=== PATIENT | female | born 1955 | race Caucasian/White ===

== ENCOUNTER 2018-12-10 06:05 | Emergency (ER) | payer BC ==
--- OUTSIDE RECORDS SUMMARY | 2018-12-10 06:11 | XMS REPORT | Continuity of Care Document ---
:1955 External Reference #:[id number] Author Name Griselda Hess Care Team Providers Name Role Phone Mandy Boyd PA Care Team Information Pattern Filer Unavailable Delores Benitez MD Primary Care Physician Unavailable Payers Date Identification Numbers Payment Provider Subscriber Effective: 2011 Policy Number: [id number] [employer] Ingrid Oliver Nacho PayID: [id number] [address] [address] [place] [address] Onset: 2010 Policy Number: [id number] TSTWC Ingrid Griffith PayID: [id number] [address] [place] [address] Problems Active Problems Provider Date Enthesopathy of hip region Kwadwo Simpson M.D. 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 ETOH Use Negative For Never used alcohol Tobacco Use Start: Unknown Patient has never smoked Recreational Drug Use Never Used Drugs Smoking Status Reviewed: 11/27/18 Patient has never smoked Exercise Type/Frequency Does not exercise severe left hip pain prevents exercise Allergies, Adverse Reactions, Alerts Active Allergies Reaction Severity Comments Date Penicillin 06/26/2013 Penicillin V 11/26/2018 Medications Active Medications SIG Qnty Indications Ordering Date Provider Xarelto 1 by mouth every 30tabs Dalton Blake 11/25/2018 20mg Tablets day Burton, DO FACC Fluticasone Propionate 2 sprays each 16gm Unknown 02/23/2017 nostril daily as 50mcg/Act Suspension needed Blood Glucose test blood sugars Unknown 02/23/2017 Monitoring System once fasting and 2 hours after dinner W/Device Kit meal Flector apply for 12 hours 10units Unknown 10/01/2015 1.3% Patches as needed cut patch to size of painful area Levocetirizine 1 every day as 90tabs Unknown 09/08/2015 Dihydrochloride needed 5mg Tablets Ranitidine 150 Maximum one by mouth twice 180tabs Unknown 09/07/2015 Strength a day as needed 150mg Tablets Simvastatin 1 by mouth every 90tabs Unknown 09/07/2015 40mg Tablets day hs Oxybutynin Chloride ER 1 tab by mouth d 90tabs Unknown 09/07/2015 15mg Tablets ER 24HR Valsartan-Hydrochlorot 1 by mouth every 90tabs Unknown 09/07/2015 hiazide day 160-12.5mg Tablets Glipizide take one tablet by 180tabs Unknown 09/07/2015 5mg Tablets mouth twice a day Pioglitazone HCL 1 by mouth every 90tabs Unknown 09/07/2015 15mg day Tablets Metoprolol Tartrate 1 by mouth twice a 180tabs Dalton Blake 25mg day Burton, DO Tablets FACC Shingrix 0.5 milliliters Unknown 50mcg/0.5ML intramuscular now Suspension Rec and 2-3 months later repeat Metformin HCL take one tablet by 180tabs Unknown 1000mg mouth twice a day Tablets Multivitamin Adults once daily Unknown Tablets Vitamin D-3 1 by mouth every Unknown 1000Unit day Capsules History Medications Ibuprofen 1 by mouth q 8 h 90tabs Unknown 09/07/2015 - 11/26/2017 800mg Tablets with food as needed Proair HFA 2 puffs every 4 17gm Unknown 09/07/2015 - 11/26/2017 108(90Base) hours as needed mcg/Act Aerosol Aspirin 81 1 by mouth every day 90tabs Unknown 09/07/2015 - 11/27/2018 81mg Tablets Vital Signs Date Vital Result Comment 11/27/2018 8:30am Height 67 inches 5'7" Weight 210.00 lb w/o shoes Heart Rate 55 /min BP Systolic Sitting 122 mmHg Lue reg cuff BP Diastolic Sitting 76 mmHg Lue reg cuff BP Systolic Standing 110 mmHg Lue reg cuff BP Diastolic Standing 72 mmHg Lue reg cuff Respiratory Rate 16 /min BMI (Body Mass Index) 32.9 kg/m2 10/26/2010 8:36am Height 66.50 inches 5'6.50" Weight 189.00 lb Heart Rate 88 /min BP Systolic 133 mmHg BP Diastolic 87 mmHg BMI (Body Mass Index) 30.0 kg/m2 Procedures Date Code Description Status 11/27/2018 54241 EKG Tracing & Interpretation Completed 09/06/2011 60361 Rad Exam; Hip Unilat Completed 09/06/2011 43948 Rad Exam; Pelvis Completed Encounters Type Date Location Provider Dx Diagnosis Office Visit 10/04/2011 Orthopedic Kwadwo Simpson M.D. 726.5 Enthesopathy Of Hip 8:45a 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 W/O Myelopathy Office Visit 12/21/2010 Orthopedic Britney 842.13 Sprains & Strains 9:15a [facility] Interphalangeal [facility] (Joint) Office Visit 11/23/2010 Orthopedic Zac 842.13 Sprains & Strains 9:00a [facility] [place] [facility] Interphalangeal [facility] ([facility]) Office Visit 11/09/2010 Orthopedic Zac 842.13 Sprains & Strains 9:45a [facility]phalangeal [facility] ([facility]) Office Visit 10/26/2010 Orthopedic Zac 842.13 Sprains & Strains 8:30a [facility] Interphalangeal [facility] (Joint) Plan of Treatment Future Appointment(s):12/09/2018 2:00 pm - Ica ECHO Schedule at [facility]12/04/2018 8:45 am - Dalton Burton DO FACC at [facility]11/27/2018 - Dalton Burton DO FACCI48.0 Paroxysmal atrial fibrillationNew Orders:Stress Test, Exercise Nuclear, Scheduled: Echocardiogram, Scheduled: 12/09/18[facility], Ordered: 11/27/18Comments:Taking both aspirin and xarelto will make the blood too thin for your. Stop taking aspirin for now.The only thing you can take for pain over the counter is tylenol (acetaminophen) Do not take metoprolol or glipizide the night before or morning of the stress test.Follow up:Please obtain records from [facility] Please arrange stress first, reduced dose protocol stress test Follow up after [id number] Type 2 diabetes mellitus with other specified [id number] Essential (primary) hypertension
--- OUTSIDE RECORDS SUMMARY | 2018-12-10 06:12 | XMS REPORT | Continuity of Care Document ---
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 Unavailable Payers Date Identification Numbers Payment Provider Subscriber Effective: 2017 Policy Number: [id number] [employer] Group Number: [id number] Group Name: MITALI Zarco [id number] PayID: [id number] Problems Active Problems Provider Date Type 2 diabetes mellitus Onset: 09/07/2015 Mixed hyperlipidemia Delores Benitez MD Onset: 10/16/2016 Essential hypertension Delores Benitez MD Onset: 02/21/2016 Allergic rhinitis due to pollen Delores Benitez MD Onset: 02/21/2016 Pure hypercholesterolemia Delores Benitez MD Onset: 02/21/2016 Gastroesophageal reflux disease Delores Benitez MD Onset: 02/21/2016 Urgent desire to urinate Delores Benitez MD Onset: 02/21/2016 Family History Date Family Member(s) Observation Comments Father Parkinson's Disease Father Melanoma Mother due to Alzheimer's Disease () First Daughter Mental Retardation First Brother Thyroid Disease Social History Type Date Description Comments Sex Unknown Marital Status 2 sons 1 dtr, 2 grandsons 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 Tobacco Use Start: Unknown Patient has never smoked Smoking Status Reviewed: 11/25/18 Patient has never smoked Allergies, Adverse Reactions, Alerts Active Allergies Reaction Severity Comments Date Penicillin 09/07/2015 Medications Active Medications SIG Qnty Indications Ordering Date Provider Metoprolol Tartrate 1 by mouth twice a 180tabs I48.0 [facility], 11/25/2018 25mg day Delores Matos MD Tablets Xarelto 1 by mouth every 90tabs I48.0 [facility], 11/25/2018 20mg Tablets day Delores Matos MD Shingrix 2 shot series 2units Z00.01 [facility], 12/11/2017 50mcg Suspension Delores Matos MD Rec Fluticasone Propionate 2 sprays in each 16units J30.1 [facility], 02/23/2017 nostril daily Delores Matos MD 50mcg/Act Suspension Premium Blood Glucose test 1-2 times a 100units E11.9 [facility], 02/23/2017 Test Strips day at alternating Delores Matos MD Strips times and as needed Flector aplly patch twice 60units M25.552 [facility], 10/01/2015 1.3% Patches a day as needed Delores Matos MD Pioglitazone HCL take 1 tablet by 90tabs E11.9 [facility], 09/07/2015 15mg mouth once daily Delores Matos MD Tablets Glipizide 1 by mouth twice a 180tabs E11.9 [facility], 09/07/2015 5mg Tablets day Delores Matos MD Metformin HCL take one tablet by 180tabs E11.9 [facility], 09/07/2015 1000mg mouth twice a day Delores Matos MD Tablets Ibuprofen one by mouth every 90tabs M25.552 [facility], 09/07/2015 800mg Tablets 8 hours with food Delores Matos MD as needed Valsartan-Hydrochlorot take 1 tablet once 90tabs I10 [facility], 09/07/2015 hiazide daily Delores Matos MD 160-12.5mg Tablets Oxybutynin Chloride ER take 1 tablet by 90tabs R39.15 [facility], 09/07/2015 mouth once daily Delores Matos MD 15mg Tablets ER 24HR Simvastatin take 1 tablet by 90tabs E78.2 [facility], 09/07/2015 40mg Tablets mouth at bedtime Delores Matos MD Ranitidine HCL 2 every night at 180tabs K21.9 [facility], 09/07/2015 150mg bedtime Delores Matos MD Tablets Levocetirizine take 1 tablet at 90tabs J30.1 [facility], 09/07/2015 Dihydrochloride bedtime as needed Delores Matos MD 5mg Tablets Proair HFA 2 p four times a 25.5gm J45.998 [facility], 09/07/2015 108(90Base) day as needed Delores Matos MD mcg/Act Aerosol Aspirin 1 by mouth every E78.0 [facility], 09/07/2015 81mg Tablets day Delores Matos MD History Medications Ciprofl[facility] HCL 1 by [facility]2017 - day-hold glipizide Delores Matos MD 11/25/2018 250mg Tablets during Clotrimazole/Betamet apply to R thigh 45gm B35.4 [facility], 10/16/2016 - hasone Dipropionate area two times a Delores Matos MD 12/11/2017 day as needed 1-0.05% Cream Nystatin-Triamcinolo apply to thigh 30gm B35.4 [facility], 06/12/2016 - ne rash tid x 2 wks Delores Matos MD 10/16/2016 662914-4.1Unit/GM-% Ointment Omeprazole 1 by mouth every 30caps K21.9 [facility], 09/07/2015 - 20mg day Delores Matos MD 02/21/[address] Amaral Ultra Blue test 1-2 times a 100units E11.9 [facility], 09/07/2015 - day at alternating Delores Matos MD 02/23/2017 Strips times and as needed Immunizations CPT Code Status Date Vaccine Lot # [id number] Given 06/12/2016 Influenza Vac, Quadrivalent, Split, 0.5mL Dosage, [id number] Im Use 96031 Given 09/06/2015 Zoster (Zostavax) 25717 Given 09/06/2015 Influenza Virus Vaccine,Quadrivalent,Split,Preserv Free, 0.5mL,Im 11560 Given 08/11/2015 Zoster (Zostavax) 51237 Given 06/25/2014 Pneumococcal 23 Immunization Adult Or Immunosuppressed Patient 30114 Given 03/15/2014 Tdap (Adacel) Ages 7 And Above Only [id number] Refused 02/23/2017 Influenza Vac, Quadrivalent, Split, 0.5mL Dosage, Im Use Vital Signs Date Vital Result Comment 11/25/2018 10:13am Weight 211.12 lb Heart Rate 60 /min BP Systolic 125 mmHg BP Diastolic 81 mmHg Height 66.5 inches 5'6.50" BMI (Body Mass Index) 33.6 kg/m2 12/11/2017 10:42am Weight 216.00 lb Heart Rate 76 /min BP Systolic 130 mmHg BP Diastolic 74 mmHg Height 66.5 inches 5'6.50" BMI (Body Mass Index) 34.3 kg/m2 06/12/2017 8:16am Weight 202.00 lb Heart Rate 76 /min BP Systolic 116 mmHg BP Diastolic 64 mmHg Height 66.5 inches 5'6.50" BMI (Body Mass Index) 32.1 kg/m2 02/23/2017 8:43am Weight 209.00 lb Heart Rate 76 /min BP Systolic 118 mmHg BP Diastolic 78 mmHg Height 66.5 inches 5'6.50" BMI (Body Mass Index) 33.2 kg/m2 10/16/2016 9:44am Weight 221.00 lb Heart Rate 68 /min BP Systolic 132 mmHg BP Diastolic 80 mmHg Height 66.5 inches 5'6.50" BMI (Body Mass Index) 35.1 kg/m2 06/12/2016 9:51am Weight 215.00 lb Heart Rate 68 /min BP Systolic 130 mmHg BP Diastolic 62 mmHg Height 66.5 inches 5'6.50" BMI (Body Mass Index) 34.2 kg/m2 02/21/2016 3:29pm Weight 214.00 lb BP Systolic 120 mmHg BP Diastolic 80 mmHg Height 66.5 inches 5'6.50" BMI (Body Mass Index) 34.0 kg/m2 09/07/2015 10:48am Weight 224.00 lb Heart Rate 80 /min BP Systolic 138 mmHg BP Diastolic 80 mmHg Height 66.5 inches 5'6.50" BMI (Body Mass Index) 35.6 kg/m2 Results Test Date Facility Test Result H/L Range Note Lyme Igm/Igg AB [facility] Lyme Igm/Igg NEGATIVE (Neg) 1, 2 -RL 8 AB @ Laboratory test [facility] Urine Microbiology res Abnormal 3 finding 8 Culture <SEE NOTE> CBC with Auto [facility] WBC 6.0 K/uL 4.1-11.0 Diff-fcmg 8 RBC 4.05 M/uL 4.00-5.40 Hemoglobin 12.1 gm/dL 12.0-16.0 Hematocrit 36.2 % 36.0-47.0 MCV 89.4 fL 80.0-97.0 MCH 29.9 pg 27.0-32.0 MCHC 33.5 g/dL 32.0-36.0 RDW 13.4 % 11.5-14.5 PLT Count 228 K/ul 140-400 MPV 9.5 FL 7.1-10.7 Neutrophil 70.3 % 35.0-75.0 Lymphocyte 20.1 % 16.0-52.0 Monocyte 7.8 % 2.0-10.0 Eosinophil 1.4 % 0.0-5.0 Basophil 0.4 % 0.0-4.0 Abs Neutrophils 4.2 K/uL 2.1-8.0 Abs Lymphocytes 1.2 K/uL 0.8-5.5 Abs Monocytes 0.5 K/uL 0.1-1.0 Abs Eosinophils 0.1 K/uL 0.0-0.5 Abs Basophils 0.0 K/uL 0.0-0.3 Comprehensive Met Panel-FCMG 12/11/2017 [facility] Sodium 137 mmol/L 135- 146 4 Potassium 4.4 mmol/L 3.5-5.2 Chloride# 104 mmol/L 97-110 5 Carbon Dioxide 25 mmol/L 24-34 Glucose 144 mg/dL High 70-105 BUN 24 mg/dL 6-26 Creatinine 0.8 mg/dL 0.5-1.4 Calcium 9.3 mg/dL 8.5-10.2 Total Protein 6.3 g/dL 6.0-8.0 Albumin 4.0 g/dL 3.6-4.9 Globulin 2.3 g/dL 2.0-3.5 A/G Ratio 1.7 Ratio 1.0-2.2 Total Bilirubin 0.4 mg/dL 0.1-1.3 Alkaline Phosphatase 72 U/L 24-140 Alt 15 U/L 3-42 Ast 17 U/L 8-42 Thao Egfr >60 >60 6 Non Thao Egfr >60 >60 7 Anion Gap 8 mmol/L 5-15 8 Hemoglobin A1c 12/11/2017 [facility] Hemoglobin A1c 7.6 % High 4.1-5.9 Estimated Average Glucose Calc 171 mg/dL High 71-140 Microalb/Creat Panel 12/11/2017 [facility] Creatinine, Urine 73.8 mg/dL Microalb/Creat Urine 15.59 ug/mgCreat 0.00-30.00 Microalbumin 11.5 ug/ml 0.0-20.0 Lipid 12/11/2017 [facility] Cholesterol 188 mg/dL 50-199 Triglycerides 117 mg/dL 30-200 HDL 75 mg/dL 35-85 9 Chol/ HDL Ratio 2.5 ratio Low 3.7-5.6 VLDL 23 mg/dL 2-29 LDL (Calc) 90 mg/dL 20-99 10 Comprehensive Met Panel-[facility]CMG 06/12/2017 [facility] Sodium 137 mmol/L 135- 146 11 Potassium 4.5 mmol/L 3.5-5.2 Chloride# 103 mmol/L 97-110 12 Carbon Dioxide 25 mmol/L 24-34 Glucose 174 mg/dL High 70-105 Creatinine 0.7 mg/dL 0.5-1.4 Calcium 9.3 mg/dL 8.5-10.2 Total Protein 6.3 g/dL 6.0-8.0 Albumin 4.2 g/dL 3.6-4.9 Globulin 2.1 g/dL 2.0-3.5 A/G Ratio 2.0 Ratio 1.0-2.2 Total Bilirubin 0.5 mg/dL 0.1-1.3 Alkaline Phosphatase 69 U/L 24-140 Alt 15 U/L 3-42 Ast 19 U/L 8-42 Thao Egfr >60 >60 13 Non Thao Egfr >60 >60 14 Anion Gap 9 mmol/L 7-16 15 BUN 19 mg/dL 6-26 Hemoglobin A1c 06/12/2017 [facility] Hemoglobin A1c 7.2 % High 4.1-5.9 Estimated Average Glucose Calc 160 mg/dL High 71-140 Lipid 06/12/2017 [facility] Cholesterol 173 mg/dL 50-199 Triglycerides 63 mg/dL 30-200 HDL 69 mg/dL 35-85 16 Chol/ HDL Ratio 2.5 ratio Low 3.7-5.6 VLDL 13 mg/dL 2-29 LDL (Calc) 91 mg/dL 20-99 17 Microalb/Creat Panel 02/23/2017 [facility] Creatinine, Urine 110.6 mg/dL Microalb/Creat Urine 47.67 ug/mgCreat High 0.00-30.00 Microalbumin 52.7 ug/ml High 0.0-20.0 Laboratory test 02/23/2017 [facility] Urine Culture Microbiology res <SEE 18 finding NOTE> Lipid 02/23/2017 [facility] Cholesterol 183 mg/dL 50-199 Triglycerides 135 mg/dL 30-200 HDL 64 mg/dL 35-85 19 Chol/ HDL Ratio 2.9 ratio Low 3.7-5.6 VLDL 27 mg/dL 2-29 LDL (Calc) 93 mg/dL 20-99 20 Hemoglobin A1c 02/23/2017 [facility] Hemoglobin A1c 7.9 % High 4.1-5.9 Estimated Average Glucose Calc 180 High 71-140 Comprehensive Met Panel-[facility]CMG 02/23/2017 [facility] Sodium 137 mmol/L 135- 146 21 Potassium 3.9 mmol/L 3.5-5.2 Chloride# 98 mmol/L 97-110 22 Carbon Dioxide 26 mmol/L 24-34 Glucose 138 mg/dL High 70-105 BUN 24 mg/dL 6-26 Creatinine 1.1 mg/dL 0.5-1.4 Calcium 9.7 mg/dL 8.5-10.2 Total Protein 7.2 g/dL 6.0-8.0 Albumin 4.5 g/dL 3.6-4.9 Globulin 2.7 g/dL 2.0-3.5 A/G Ratio 1.7 Ratio 1.0-2.2 Total Bilirubin 0.5 mg/dL 0.1-1.3 Alkaline Phosphatase 91 U/L 24-140 Alt 12 U/L 3-42 Ast 15 U/L 8-42 Thao Egfr >60 >60 23 Non Thao Egfr 52 Low >60 24 Anion Gap 13 mmol/L 7-16 25 Comprehensive Metabolic (CMP) 10/16/2016 [facility] Sodium 137 mmol/L 135- 146 26 Potassium 4.0 mmol/L 3.5-5.2 Chloride# 101 mmol/L 97-110 27 Carbon Dioxide 26 mmol/L 24-34 Glucose 155 mg/dL High 70-105 BUN 17 mg/dL 6-26 Creatinine 0.7 mg/dL 0.5-1.4 Calcium 9.4 mg/dL 8.5-10.2 Total Protein 6.6 g/dL 6.0-8.0 Albumin 4.4 g/dL 3.6-4.9 Globulin 2.2 g/dL 2.0-3.5 A/G Ratio 2.0 Ratio 1.0-2.2 Total Bilirubin 0.6 mg/dL 0.1-1.3 Alkaline Phosphatase 67 U/L 24-140 Alt 15 U/L 3-42 Ast 17 U/L 8-42 Thao Egfr >60 >60 28 Non Thao Egfr >60 >60 29 Anion Gap 14 mmol/L 7-16 30 Hemoglobin A1c 10/16/2016 [facility] Hemoglobin A1c 7.8 % High 4.1-5.9 Estimated Average Glucose Calc 177 High 71-140 Lipid 10/16/2016 [facility] Cholesterol 193 mg/dL 50-199 Triglycerides 76 mg/dL 30-200 HDL 80 mg/dL 35-85 31 Chol/ HDL Ratio 2.4 ratio Low 3.7-5.6 VLDL 15 mg/dL 2-29 LDL (Calc) 98 mg/dL 20-99 32 CBC With Auto Diff 06/12/2016 [facility] WBC 5.3 K/uL 4.1-11.0 RBC 4.31 M/uL 4.00-5.40 Hemoglobin 12.9 gm/dL 12.0-16.0 Hematocrit 39.1 % 36.0-47.0 MCV 90.7 fL 80.0-97.0 MCH 29.9 pg 27.0-32.0 MCHC 33.0 g/dL 32.0-36.0 RDW 13.5 % 11.5-14.5 PLT Count 231 K/ul 140-400 Neutrophil 66.4 % 35.0-75.0 Lymphocyte 25.0 % 16.0-52.0 Monocyte 6.1 % 2.0-10.0 Eosinophil 2.1 % 0.0-5.0 Basophil 0.4 % 0.0-4.0 Abs Neutrophils 3.5 K/uL 2.1-8.0 Abs Lymphocytes 1.3 K/uL 0.8-5.5 Abs Monocytes 0.3 K/uL 0.1-1.0 Abs Eosinophils 0.1 K/uL 0.0-0.5 Abs Basophils 0.0 K/uL 0.0-0.3 Comprehensive Metabolic (CMP) 06/12/2016 [facility] Sodium 136 mmol/L 134- 142 Potassium 4.1 mmol/L 3.5-5.2 Chloride 100 mmol/L 97-109 Carbon Dioxide 28 mmol/L 24-34 Glucose 118 mg/dL High 70-105 BUN 18 mg/dL 6-26 Creatinine 0.7 mg/dL 0.5-1.4 Calcium 9.3 mg/dL 8.5-10.2 Total Protein 7.0 g/dL 6.0-8.0 Albumin 4.4 g/dL 3.6-4.9 Globulin 2.6 g/dL 2.0-3.5 A/G Ratio 1.7 Ratio 1.0-2.2 Total Bilirubin 0.6 mg/dL 0.1-1.3 Alkaline Phosphatase 73 U/L 24-140 Alt 16 U/L 3-42 Ast 17 U/L 8-42 Anion Gap 12 mmol/L 6-14 Thao Egfr >60 >60 33 Non Thao Egfr >60 >60 34 Laboratory test finding 06/12/2016 [facility] Hemoglobin A1c 7.2 % High 4.1- 5.9 Lipid 06/12/2016 [facility] Cholesterol 186 mg/dL 50-199 Triglycerides 79 mg/dL 30-200 HDL 69 mg/dL 35-85 35 Chol/ HDL Ratio 2.7 ratio Low 3.7-5.6 VLDL 16 mg/dL 2-29 LDL (Calc) 101 mg/dL High 20-99 36 Laboratory test 02/24/2016 [facility] Hepatitis C Virus NONREACTIVE Nonreactive finding Antibody Lipid 02/24/2016 [facility] Cholesterol 192 mg/dL 50-199 Triglycerides 73 mg/dL 30-200 HDL 70 mg/dL 35-85 37 Chol/ HDL Ratio 2.7 ratio Low 3.7-5.6 VLDL 15 mg/dL 2-29 LDL (Calc) 107 mg/dL High 20-99 38 Laboratory test finding 02/24/2016 [facility] Hemoglobin A1c 7.3 % High 4.1- 5.9 Comprehensive Metabolic 02/24/2016 [facility] Sodium 136 mmol/L 134-142 (CMP) Potassium 4.7 mmol/L 3.5-5.2 Chloride 102 mmol/L 97-109 Carbon Dioxide 30 mmol/L 24-34 Glucose 145 mg/dL High 70-105 BUN 18 mg/dL 6-26 Creatinine 0.7 mg/dL 0.5-1.4 Calcium 9.6 mg/dL 8.5-10.2 Total Protein 6.7 g/dL 6.0-8.0 Albumin 4.1 g/dL 3.6-4.9 Globulin 2.6 g/dL 2.0-3.5 A/G Ratio 1.6 Ratio 1.0-2.2 Total Bilirubin 0.5 mg/dL 0.1-1.3 Alkaline Phosphatase 69 U/L 24-140 Alt 12 U/L 3-42 Ast 14 U/L 8-42 Anion Gap 9 mmol/L 6-14 Thao Egfr >60 >60 39 Non Thao Egfr >60 >60 40 CBC With Auto Diff 02/24/2016 [facility] WBC 4.6 K/uL 4.1-11.0 RBC 4.20 M/uL 4.00-5.40 Hemoglobin 12.6 gm/dL 12.0-16.0 Hematocrit 37.8 % 36.0-47.0 MCV 89.9 fL 80.0-97.0 MCH 30.1 pg 27.0-32.0 MCHC 33.4 g/dL 32.0-36.0 RDW 13.4 % 11.5-14.5 PLT Count 216 K/ul 140-400 Neutrophil 60.3 % 35.0-75.0 Lymphocyte 28.0 % 16.0-52.0 Monocyte 7.6 % 2.0-10.0 Eosinophil 3.3 % 0.0-5.0 Basophil 0.8 % 0.0-4.0 Abs Neutrophils 2.8 K/uL 2.1-8.0 Abs Lymphocytes 1.3 K/uL 0.8-5.5 Abs Monocytes 0.4 K/uL 0.1-1.0 Abs Eosinophils 0.2 K/uL 0.0-0.5 Abs Basophils 0.0 K/uL 0.0-0.3 Microalb/Creat Panel 02/21/2016 [facility] Creatinine, Urine 79.4 mg/dL Microalb/Creat Urine 49.01 ug/mgCreat High 0.00-30.00 Microalbumin 38.9 ug/ml High 0.0-20.0 Comprehensive Metabolic (CMP) 09/07/2015 [facility] Sodium 134 mmol/L 134- 142 Potassium 4.2 mmol/L 3.5-5.2 Chloride 101 mmol/L 97-109 Carbon Dioxide 27 mmol/L 24-34 Glucose 164 mg/dL High 70-105 BUN 13 mg/dL 6-26 Creatinine 0.7 mg/dL 0.5-1.4 Calcium 9.5 mg/dL 8.5-10.2 Total Protein 6.7 g/dL 6.0-8.0 Albumin 4.2 g/dL 3.6-4.9 Globulin 2.5 g/dL 2.0-3.5 A/G Ratio 1.7 Ratio 1.0-2.2 Total Bilirubin 0.5 mg/dL 0.1-1.3 Alkaline Phosphatase 77 U/L 24-140 Alt 18 U/L 3-42 Ast 17 U/L 8-42 Anion Gap 10 mmol/L 6-14 Thao Egfr >60 >60 41 Non Thao Egfr >60 >60 42 Laboratory test finding 09/07/2015 [facility] Hemoglobin A1c 7.9 % High 4.1- 5.9 Lipid 09/07/2015 [facility] Cholesterol 188 mg/dL 50-199 Triglycerides 107 mg/dL 30-200 HDL 70 mg/dL 35-85 43 Chol/ HDL Ratio 2.7 ratio Low 3.7-5.6 VLDL 21 mg/dL 2-29 LDL (Calc) 97 mg/dL 20-99 44 Laboratory test finding 09/07/2015 [facility] Vit D,25 Hydroxy 50 ng/mL 31- 100 TSH 3.48 uIU/mL 0.35-4.94 Free T4 0.88 ng/dL 0.70-1.48 Laboratory test finding 09/07/2015 [facility] Lyme Igm/Igg AB NEGATIVE (Neg ) 45 CBC With Auto Diff 09/07/2015 [facility] WBC 5.3 K/uL 4.1-11.0 RBC 4.30 M/uL 4.00-5.40 Hemoglobin 13.0 gm/dL 12.0-16.0 Hematocrit 39.1 % 36.0-47.0 MCV 90.9 fL 80.0-97.0 MCH 30.1 pg 27.0-32.0 MCHC 33.2 g/dL 32.0-36.0 RDW 13.5 % 11.5-14.5 PLT Count 224 K/ul 140-400 Neutrophil 65.8 % 35.0-75.0 Lymphocyte 24.6 % 16.0-52.0 Monocyte 7.2 % 2.0-10.0 Eosinophil 1.7 % 0.0-5.0 Basophil 0.7 % 0.0-4.0 Abs Neutrophils 3.5 K/uL 2.1-8.0 Abs Lymphocytes 1.3 K/uL 0.8-5.5 Abmon 0.4 K/uL 0.1-1.0 Abs Eosinophils 0.1 K/uL 0.0-0.5 Abs Basophils 0.0 K/uL 0.0-0.3 1 This sample is drawn by:NB. 2 A Negative serologic test for Lyme Disease indicates no serologic evidence of infection with B burgdorferi at the time this specimen was collected. A repeat specimen should be collected in 2 to 4 weeks if clinically indicated. Unless otherwise specified, testing performed by [facility] [address] [place] [id number] 3 Microbiology results SOURCE Clean Catch Midstream COLONY COUNT >100,000 CFU/ML PRELIMINARY RESULT Gram Negative Uriah. ID & Sensitivity to Follow. 12/12/2017 2:52 PM FINAL RESULT Escherichia coli (Isolate 1) Sensitivity Analysis Isolate 1 --------- AMIKACIN <=16 S AMOXICILLIN/CLAVULANATE <=8/4 S AMPICILLIN <=8 S AMPICILLIN/SULBACTAM <=8/4 S CEFAZOLIN <=2 S CEFEPIME <=8 S CEFOTAXIME <=2 S CEFTRIAXONE <=1 S CEFUROXIME <=4 S CIPROFLOXACIN <=1 S ERTAPENEM <=0.5 S GENTAMYCIN <=2 S IMIPENEM <=1 S LEVOFLOXACIN <=2 S NITROFURANTOIN <=32 S PIPERACILLIN/TAZOBACTAM <=16 S TETRACYCLINE <=4 S TOBRAMYCIN <=4 S TRIMETHOPRIM/SULFAMETHOXAZ <=2/38 S S=Sensitive;I=Indeterminate;R=Resistant 4 Updated reference range on new analyzer 5 Updated reference range on new analyzer 6 Concerning GFR Guidelines for Americans: Normal function or mild renal disease, if clinically at risk: >/=60 mL/min Moderately decreased: 30-59 Severely decreased: 15-29 Renal failure: <15 7 Concerning GFR Guidelines: Normal function or mild renal disease, if clinically at risk: >/=60 mL/min Moderately decreased: 30-59 Severely decreased: 15-29 Renal failure: <15 Glomerular Filtration Rate (GFR) is estimated based on the MDRD equation, which assumes a steady state for creatinine as recommended by the National Kidney Disease Education Program in conjunction with the National Institutes of Health and the National Kidney Foundation. Clinical conditions in which it may be necessary to measure GFR by using clearance methods include extremes of age and body size, severe malnutrition or obesity, diseases of skeletal muscle, paraplegia or quadriplegia, vegetarian diet, rapidly changing kidney function, and calculation of the dose of potentially toxic drugs that are excreted by the kidneys. 8 Updated Reference Range 9 Per NCEP ATP III Guidelines: Results lower than 40 mg/dL are suggestive of increased risk for coronary artery disease. Results > or=to 60 mg/dL are considered a negative risk factor. 10 Per NCEP ATP III Guidelines: Normal Population <130 Patients with medical conditions: CHD/DM Optimal: <100 Borderline high: 130-159 High: 160-189 Very high: >189 11 Updated reference range on new analyzer 12 Updated reference range on new analyzer 13 Concerning GFR Guidelines for Americans: Normal function or mild renal disease, if clinically at risk: >/=60 mL/min Moderately decreased: 30-59 Severely decreased: 15-29 Renal failure: <15 14 Concerning GFR Guidelines: Normal function or mild renal disease, if clinically at risk: >/=60 mL/min Moderately decreased: 30-59 Severely decreased: 15-29 Renal failure: <15 Glomerular Filtration Rate (GFR) is estimated based on the MDRD equation, which assumes a steady state for creatinine as recommended by the National Kidney Disease Education Program in conjunction with the National Institutes of Health and the National Kidney Foundation. Clinical conditions in which it may be necessary to measure GFR by using clearance methods include extremes of age and body size, severe malnutrition or obesity, diseases of skeletal muscle, paraplegia or quadriplegia, vegetarian diet, rapidly changing kidney function, and calculation of the dose of potentially toxic drugs that are excreted by the kidneys. 15 Updated reference range on new analyzer 16 Per NCEP ATP III Guidelines: Results lower than 40 mg/dL are suggestive of increased risk for coronary artery disease. Results > or=to 60 mg/dL are considered a negative risk factor. 17 Per NCEP ATP III Guidelines: Normal Population <130 Patients with medical conditions: CHD/DM Optimal: <100 Borderline high: 130-159 High: 160-189 Very high: >189 18 Microbiology results SOURCE Clean Catch Midstream FINAL RESULT 25,000 CFU/ML Mixed urogenital ana consistent with contamination. Request fresh specimen if indicated. 19 Per NCEP ATP III Guidelines: Results lower than 40 mg/dL are suggestive of increased risk for coronary artery disease. Results > or=to 60 mg/dL are considered a negative risk factor. 20 Per NCEP ATP III Guidelines: Normal Population <130 Patients with medical conditions: CHD/DM Optimal: <100 Borderline high: 130-159 High: 160-189 Very high: >189 21 Updated reference range on new analyzer 22 Updated reference range on new analyzer 23 Concerning GFR Guidelines for Americans: Normal function or mild renal disease, if clinically at risk: >/=60 mL/min Moderately decreased: 30-59 Severely decreased: 15-29 Renal failure: <15 24 Concerning GFR Guidelines: Normal function or mild renal disease, if clinically at risk: >/=60 mL/min Moderately decreased: 30-59 Severely decreased: 15-29 Renal failure: <15 Glomerular Filtration Rate (GFR) is estimated based on the MDRD equation, which assumes a steady state for creatinine as recommended by the National Kidney Disease Education Program in conjunction with the National Institutes of Health and the National Kidney Foundation. Clinical conditions in which it may be necessary to measure GFR by using clearance methods include extremes of age and body size, severe malnutrition or obesity, diseases of skeletal muscle, paraplegia or quadriplegia, vegetarian diet, rapidly changing kidney function, and calculation of the dose of potentially toxic drugs that are excreted by the kidneys. 25 Updated reference range on new analyzer 26 Updated reference range on new analyzer 27 Updated reference range on new analyzer 28 Concerning GFR Guidelines for Americans: Normal function or mild renal disease, if clinically at risk: >/=60 mL/min Moderately decreased: 30-59 Severely decreased: 15-29 Renal failure: <15 29 Concerning GFR Guidelines: Normal function or mild renal disease, if clinically at risk: >/=60 mL/min Moderately decreased: 30-59 Severely decreased: 15-29 Renal failure: <15 Glomerular Filtration Rate (GFR) is estimated based on the MDRD equation, which assumes a steady state for creatinine as recommended by the National Kidney Disease Education Program in conjunction with the National Institutes of Health and the National Kidney Foundation. Clinical conditions in which it may be necessary to measure GFR by using clearance methods include extremes of age and body size, severe malnutrition or obesity, diseases of skeletal muscle, paraplegia or quadriplegia, vegetarian diet, rapidly changing kidney function, and calculation of the dose of potentially toxic drugs that are excreted by the kidneys. 30 Updated reference range on new 31 Per NCEP ATP III Guidelines: Results lower than 40 mg/dL are suggestive of increased risk for coronary artery disease. Results > or=to 60 mg/dL are considered a negative risk factor. 32 Per NCEP ATP III Guidelines: Normal Population <130 Patients with medical conditions: CHD/DM Optimal: <100 Borderline high: 130-159 High: 160-189 Very high: >189 33 Concerning GFR Guidelines for Americans: Normal function or mild renal disease, if clinically at risk: >/=60 mL/min Moderately decreased: 30-59 Severely decreased: 15-29 Renal failure: <15 34 Concerning GFR Guidelines: Normal function or mild renal disease, if clinically at risk: >/=60 mL/min Moderately decreased: 30-59 Severely decreased: 15-29 Renal failure: <15 Glomerular Filtration Rate (GFR) is estimated based on the MDRD equation, which assumes a steady state for creatinine as recommended by the National Kidney Disease Education Program in conjunction with the National Institutes of Health and the National Kidney Foundation. Clinical conditions in which it may be necessary to measure GFR by using clearance methods include extremes of age and body size, severe malnutrition or obesity, diseases of skeletal muscle, paraplegia or quadriplegia, vegetarian diet, rapidly changing kidney function, and calculation of the dose of potentially toxic drugs that are excreted by the kidneys. 35 Per NCEP ATP III Guidelines: Results lower than 40 mg/dL are suggestive of increased risk for coronary artery disease. Results > or=to 60 mg/dL are considered a negative risk factor. 36 Per NCEP ATP III Guidelines: Normal Population <130 Patients with medical conditions: CHD/DM Optimal: <100 Borderline high: 130-159 High: 160-189 Very high: >189 37 Per NCEP ATP III Guidelines: Results lower than 40 mg/dL are suggestive of increased risk for coronary artery disease. Results > or=to 60 mg/dL are considered a negative risk factor. 38 Per NCEP ATP III Guidelines: Normal Population <130 Patients with medical conditions: CHD/DM Optimal: <100 Borderline high: 130-159 High: 160-189 Very high: >189 39 Concerning GFR Guidelines for Americans: Normal function or mild renal disease, if clinically at risk: >/=60 mL/min Moderately decreased: 30-59 Severely decreased: 15-29 Renal failure: <15 40 Concerning GFR Guidelines: Normal function or mild renal disease, if clinically at risk: >/=60 mL/min Moderately decreased: 30-59 Severely decreased: 15-29 Renal failure: <15 Glomerular Filtration Rate (GFR) is estimated based on the MDRD equation, which assumes a steady state for creatinine as recommended by the National Kidney Disease Education Program in conjunction with the National Institutes of Health and the National Kidney Foundation. Clinical conditions in which it may be necessary to measure GFR by using clearance methods include extremes of age and body size, severe malnutrition or obesity, diseases of skeletal muscle, paraplegia or quadriplegia, vegetarian diet, rapidly changing kidney function, and calculation of the dose of potentially toxic drugs that are excreted by the kidneys. 41 Concerning GFR Guidelines for Americans: Normal function or mild renal disease, if clinically at risk: >/=60 mL/min Moderately decreased: 30-59 Severely decreased: 15-29 Renal failure: <15 42 Concerning GFR Guidelines: Normal function or mild renal disease, if clinically at risk: >/=60 mL/min Moderately decreased: 30-59 Severely decreased: 15-29 Renal failure: <15 Glomerular Filtration Rate (GFR) is estimated based on the MDRD equation, which assumes a steady state for creatinine as recommended by the National Kidney Disease Education Program in conjunction with the National Institutes of Health and the National Kidney Foundation. Clinical conditions in which it may be necessary to measure GFR by using clearance methods include extremes of age and body size, severe malnutrition or obesity, diseases of skeletal muscle, paraplegia or quadriplegia, vegetarian diet, rapidly changing kidney function, and calculation of the dose of potentially toxic drugs that are excreted by the kidneys. 43 Per NCEP ATP III Guidelines: Results lower than 40 mg/dL are suggestive of increased risk for coronary artery disease. Results > or=to 60 mg/dL are considered a negative risk factor. 44 Per NCEP ATP III Guidelines: Normal Population <130 Patients with medical conditions: CHD/DM Optimal: <100 Borderline high: 130-159 High: 160-189 Very high: >189 45 A Negative serologic test for Lyme Disease indicates no serologic evidence of infection with B burgdorferi at the time this specimen was collected. A repeat specimen should be collected in 2 to 4 weeks if clinically indicated. Unless otherwise specified, testing performed by [facility] [address] [place] [address] Procedures Date Code Description Status 11/25/2018 35136 Electrocardiogram Complete Completed 03/18/2018 [id number] Bone Mineral Density Test Completed 03/18/2018 [id number] Mammogram Completed 12/11/2017 46304 Electrocardiogram Complete Completed 03/13/2017 [id number] Mammogram Completed 02/21/2016 16887 Electrocardiogram Complete Completed 12/05/2013 [id number] Bone Mineral Density Test Completed 11/25/2013 [id number] Mammogram Completed 10/15/2012 [id number] Mammogram Completed 08/26/2007 [id number] Colonoscopy Completed Encounters Type Date Location Provider Dx Diagnosis Office Visit 12/11/2017 Delores Vieyra Z00.01 Encounter for 10:30a MD [facility] general adult medical exam w abnormal findings M25.552 Pain in LEFT hip I10 Essential (primary) hypertension K21.9 Gastro-esophageal reflux disease without esophagitis E78.2 Mixed hyperlipidemia R39.15 Urgency of urination J30.1 Allergic rhinitis due to pollen F41.1 Generalized anxiety disorder Z12.11 Encounter for screening for malignant neoplasm of colon Z12.31 Encntr screen mammogram for malignant neoplasm of breast Z13.820 Encounter for screening for osteoporosis E11.9 Type 2 diabetes mellitus without complications M54.5 Low back pain S80.862A Insect bite (nonvenomous), LEFT lower leg, initial encounter Z68.34 Body mass index (BMI) 34.0-34.9, adult Office Visit 06/12/2017 8:15a Delores Vieyra E11.9 Type 2 diabetes MD [facility] mellitus without complications I10 Essential (primary) hypertension K21.9 Gastro-esophageal reflux disease without esophagitis E78.2 Mixed hyperlipidemia R39.15 Urgency of urination J30.1 Allergic rhinitis due to pollen F41.1 Generalized anxiety disorder M25.551 Pain in RIGHT hip Office Visit 02/23/2017 8:30a Delores Vieyra E11.9 Type 2 diabetes MD [facility] mellitus without complications I10 Essential (primary) hypertension K21.9 Gastro-esophageal reflux disease without esophagitis E78.2 Mixed hyperlipidemia R39.15 Urgency of urination F41.1 Generalized anxiety disorder J30.1 Allergic rhinitis due to pollen Z12.31 Encntr screen mammogram for malignant neoplasm of breast M79.671 Pain in RIGHT foot Office Visit 10/16/2016 10:15a Delores Vieyra E11.9 Type 2 diabetes MD [facility] mellitus without complications K21.9 Gastro-esophageal reflux disease without esophagitis I10 Essential (primary) hypertension F41.1 Generalized anxiety disorder E78.2 Mixed hyperlipidemia R39.15 Urgency of urination Z12.31 Encntr screen mammogram for malignant neoplasm of breast B35.4 Tinea corporis Office Visit 06/12/2016 9:45a Delores Vieyra E11.9 Type 2 diabetes MD [facility] mellitus without complications E78.2 Mixed hyperlipidemia R39.15 Urgency of urination K21.9 Gastro-esophageal reflux disease without esophagitis J30.1 Allergic rhinitis due to pollen Z12.31 Encntr screen mammogram for malignant neoplasm of breast I10 Essential (primary) hypertension B35.4 Tinea corporis Z23 Encounter for immunization Office Visit 02/21/2016 3:00p Delores Vieyra Z00.00 Encntr for general MD [facility] adult medical exam w/o abnormal findings E11.9 Type 2 diabetes mellitus without complications R39.15 Urgency of urination K21.9 Gastro-esophageal reflux disease without esophagitis E78.0 Pure hypercholesterolemia J30.1 Allergic rhinitis due to pollen Z12.31 Encntr screen mammogram for malignant neoplasm of breast Z12.11 Encounter for screening for malignant neoplasm of colon M54.5 Low back pain I10 Essential (primary) hypertension M25.551 Pain in RIGHT hip Office Visit 09/07/2015 11:00a Delores Vieyra E11.9 Type 2 leatha Matos MD mellitus without complications Z12.31 Encntr screen mammogram for malignant neoplasm of breast I10 Essential (primary) hypertension R39.15 Urgency of urination K21.9 Gastro-esophageal reflux disease without esophagitis E78.0 Pure hypercholesterolemia J30.1 Allergic rhinitis due to pollen J45.998 Other asthma M25.551 Pain in RIGHT hip E04.9 Nontoxic goiter, unspecified Z13.21 Encounter for screening for nutritional disorder R21 Rash and other nonspecific skin eruption M54.5 Low back pain Plan of Treatment 11/25/2018 - Biter, Trace, PAI48.0 Paroxysmal atrial fibrillationNew Medication: Metoprolol Tartrate 25 mg - 1 by mouth twice a dayXarelto 20 mg - 1 by mouth every dayComments:? dehydration induced A Fib. RRR today. will recheck EKG and refer to cardio. maintain meds untileval with CardioReferral:Alexx Akbar MD,I10 Essential (primary) hypertensionComments:stable on medsE11.9 Type 2 diabetes mellitus without complicationsComments:tbdklbK34.2 Mixed hyperlipidemiaComments:stable on medsZ68.33 Body mass index (BMI) 33.0-33.9, adult
--- OUTSIDE RECORDS SUMMARY | 2018-12-10 06:12 | XMS REPORT | Continuity of Care Document ---
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 Tobacco Use Start: Unknown Patient has never smoked Smoking Status Reviewed: 11/25/18 Patient has never smoked Allergies, Adverse Reactions, Alerts Active Allergies Reaction Severity Comments Date Penicillin 09/07/2015 Medications Active Medications SIG Qnty Indications Ordering Date Provider Metoprolol Tartrate 1 by mouth twice a 180tabs I48.0 [facility], 11/25/2018 25mg day Delores Matos MD Tablets Xarelto 1 by mouth every 90tabs I48.0 [facility], 11/25/2018 20mg Tablets day Delores Matos MD Shingrix 2 shot series 2units Z00.01 [facility], 12/11/2017 50mcg Suspension Delores Matos MD Rec Fluticasone Propionate 2 sprays in each 16units J30.1 [facility], 02/23/2017 nostril daily Delores Matos MD 50mcg/Act Suspension Premium Blood Glucose test 1-2 times a 100units E11.9 [facility], 02/23/2017 Test Strips day at alternating Delores Matos MD Strips times and as needed Flector aplly patch twice 60units M25.552 [facility], 10/01/2015 1.3% Patches a day as needed Delores Matos MD Pioglitazone HCL take 1 tablet by 90tabs E11.9 [facility], 09/07/2015 15mg mouth once daily Delores Matos MD Tablets Glipizide 1 by mouth twice a 180tabs E11.9 [facility], 09/07/2015 5mg Tablets day Delores Matos MD Metformin HCL take one tablet by 180tabs E11.9 [facility], 09/07/2015 1000mg mouth twice a day Delores Matos MD Tablets Ibuprofen one by mouth every 90tabs M25.552 [facility], 09/07/2015 800mg Tablets 8 hours with food Delores Mtaos MD as needed Valsartan-Hydrochlorot take 1 tablet once 90tabs I10 [facility], 09/07/2015 hiazide daily Delores Matos MD 160-12.5mg Tablets Oxybutynin Chloride ER take 1 tablet by 90tabs R39.15 [facility], 09/07/2015 mouth once daily Delores Matos MD 15mg Tablets ER 24HR Simvastatin take 1 tablet by 90tabs E78.2 [facility], 09/07/2015 40mg Tablets mouth at bedtime Delores Matos MD Ranitidine HCL 2 every night at 180tabs K21.9 [facility], 09/07/2015 150mg bedtime Delores Matos MD Tablets Levocetirizine take 1 tablet at 90tabs J30.1 [facility], 09/07/2015 Dihydrochloride bedtime as needed Delores Matos MD 5mg Tablets Proair HFA 2 p four times a 25.5gm J45.998 [facility], 09/07/2015 108(90Base) day as needed Delores Matos MD mcg/Act Aerosol Aspirin 1 by mouth every E78.0 [facility], 09/07/2015 81mg Tablets day Delores Matos MD History Medications Ciprofloxacin HCL 1 by mouth twice a 6tabs [facility], 12/13/2017 - day-hold glipizide Delores Matos MD 11/25/2018 250mg Tablets during Clotrimazole/Betamet apply to R thigh 45gm B35.4 [facility] 10[facility]2016 - hasone Dipropionate area two times a Delores Matos MD 12/11/2017 day as needed 1-0.05% Cream Nystatin-Triamcinolo apply to thigh 30gm B35.4 [facility], 06/12/2016 - ne rash tid x 2 wks Delores Matos MD 10/16/2016 457583-6.1Unit/GM-% Ointment Omeprazole 1 by mouth every 30caps K21.9 [facility], 09/07/2015 - 20mg day Delores Matos MD 02/21/[address] Amaral Ultra Blue test 1-2 times a 100units E11.9 [facility], 09/07/2015 - day at alternating Delores Matos MD 02/23/2017 Strips times and as needed Immunizations CPT Code Status Date Vaccine Lot # [id number] Given 06/12/2016 Influenza Vac, Quadrivalent, Split, 0.5mL Dosage, [id number] Im Use 69942 Given 09/06/2015 Zoster (Zostavax) 26069 Given 09/06/2015 Influenza Virus Vaccine,Quadrivalent,Split,Preserv Free, 0.5mL,[place] [address] Given 08/11/2015 Zoster (Zostavax) 75139 Given 06/25/2014 Pneumococcal 23 Immunization Adult Or Immunosuppressed Patient 74534 Given 03/15/2014 Tdap (Adacel) Ages 7 And Above Only [id number] Refused 02/23/2017 Influenza Vac, Quadrivalent, Split, 0.5mL [...] 8 mmol/L 5-15 8 [facility] 7.6 % High 4.1-5.9 Estimated [...] 52.7 ug/ml High 0.0-20.0 Laboratory test 02/23/2017 [facility] Urine Culture Microbiology res <SEE 18 finding NOTE> Lipid 02/23/2017 [facility] Cholesterol 183 mg/dL 50-199 Triglycerides 135 mg/dL 30-200 HDL 64 mg/dL 35-85 19 Chol/ HDL Ratio 2.9 ratio Low 3.7-5.6 VLDL 27 mg/dL 2-29 LDL (Calc) 93 mg/dL 20-99 20 Hemoglobin A1c 02/23/2017 [facility] Hemoglobin A1c 7.9 % High 4.1-5.9 Estimated Average Glucose Calc 180 High 71-140 Comprehensive Met Panel-[facility]CMG 02/23/2017 [facility] Sodium 137 mmol/L 135- 146 21 Potassium [...] Glucose Calc 177 High 71-140 Lipid 10/16/2016 [facility] Cholesterol 193 mg/dL 50-199 Triglycerides 76 mg/dL [...] >60 >60 34 Laboratory test [facility] A1[facility] 7.2 % High 4.1- 5.9 Lipid [facility]12[facility]2016 [facility] 186 mg/dL 50-199 Triglycerides 79 mg/dL 30-200 HDL 69 mg/dL 35-85 35 Chol/ HDL Ratio 2.7 ratio Low 3.7-5.6 VLDL 16 mg/dL 2-29 LDL (Calc) 101 mg/dL High 20-99 36 Laboratory test 02/24/2016 [facility] Virus NONREACTIVE Nonreactive finding Antibody Lipid 02/24/2016 [facility] Cholesterol 192 mg/dL 50-199 Triglycerides 73 mg/dL 30-200 HDL 70 mg/dL 35-85 37 Chol/ HDL Ratio 2.7 ratio Low 3.7-5.6 VLDL 15 mg/dL 2-29 LDL (Calc) 107 mg/dL High 20-99 38 Laboratory test finding 02/24/2016 [facility] Hem[facility] A1c 7.3 % High 4.1- 5.9 Comprehensive Metabolic 02/24/2016 [facility] Sodium 136 mmol/L 134-142 (CMP) Potassium 4.7 [...] >60 40 CBC With Auto Diff 02/24/2016 [facility] WBC 4.6 K/uL 4.1-11.0 RBC 4.20 M/uL [...] Basophils 0.0 K/uL 0.0-0.3 Microalb/Creat Panel 02/21/2016 [facility] Creatinine, Urine 79.4 mg/dL Microalb/Creat Urine 49.01 ug/mgCreat High 0.00-30.00 Microalbumin 38.9 ug/ml High 0.0-20.0 Comprehensive Metabolic (CMP) 09/07/2015 [facility] Sodium 134 mmol/L 134- 142 Potassium 4.2 [...] Unless otherwise specified, testing performed by [facility] [address] [place] [address] 3 Microbiology results SOURCE Clean Catch Midstream [...] kidneys. 30 Updated reference range on new analyzer 31 Per NCEP ATP III Guidelines: Results [...] Unless otherwise specified, testing performed by [facility] [address] [place] [address] Procedures Date Code Description Status 11/25/2018 54163 Electrocardiogram Complete Completed 03/18/2018 [id number] Bone Mineral Density Test Completed 03/18/2018 [id number] Mammogram Completed 12/11/2017 39229 Electrocardiogram Complete Completed 03/13/2017 [id number] Mammogram Completed 02/21/2016 62851 Electrocardiogram Complete Completed 12/05/2013 [id number] Bone Mineral Density Test Completed 11/25/2013 [id number] Mammogram Completed 10/15/2012 [id number] Mammogram Completed 08/26/2007 [id number] Colonoscopy Completed Encounters Type Date Location Provider [...] 09/07/2015 11:00a Delores Vieyra E11.9 Type 2 diabetes MD Carlo mellitus without complications Z12.31 Encntr screen mammogram [...] back pain Plan of Treatment 11/25/2018 - Trace Garland, XAVIER48.0 Paroxysmal atrial fibrillationNew Medication: Metoprolol Tartrate 25 mg - 1 by mouth twice a dayXarelto 20 mg - 1 by mouth every dayComments:? dehydration induced A Fib. RRR today. will recheck EKG and refer to cardio. maintain meds untileval with CardioReferral:Alexx Akbar MD,I10 Essential (primary) hypertensionComments:stable on medsE11.9 Type 2 diabetes mellitus without complicationsComments:fkdyqgG61.2 Mixed hyperlipidemiaComments:stable on medsZ68.33 Body mass index (BMI) 33.0-33.9, adult
[2018-12-10] MEDS ORDERED: Metoprolol Tartrate IV* 1 MG/ML 5 ML VIAL IV ONE (06:35)
[2018-12-10 06:44] LABS: ABS Eosinophils 0.1 10^3/ul (0-0.6); ABS Lymphocytes 1.1 10^3/ul (1.0-4.8); ABS Monocytes 0.4 10^3/ul (0-0.8); ABS Neutrophils 4.4 10^3/ul (1.5-7.7); Eosinophil % 1.8 %; Hematocrit 36 % (35-47); Hemoglobin 12.3 g/dL (12.0-16.0); Lymphocyte % 18.4 %; Mean Corpuscular HGB Conc 34 g/dL (31-36); Mean Corpuscular Hemoglobin 30 pg (27-31); Mean Corpuscular Volume 89 fL (80-97); Mean Platelet Volume 9.7 fL (7.4-10.4); Nucleated Red Blood Cells % 0.1; Platelet Count 196 10^3/uL (150-450); Red Blood Count 4.04 10^6 /uL (3.70-4.87); Red Cell Distribution Width 13 % (10-15)
[2018-12-10 07:02] LABS: Albumin/Globulin Ratio 1.5 (1-3); BUN/Creatinine Ratio 27.3 (8-20); Calcium 9.8 mg/dL (8.6-10.3); EGFR African American 91.6 (>60); EGFR Non-African American 75.7 (>60); Globulin 2.7 g/dL (2-4); Potassium 3.8 mmol/L (3.5-5.0); Total Bilirubin 0.5 mg/dL (0.2-1.0); Total Protein 6.7 g/dL (6.4-8.9)
[2018-12-10 08:19] VITALS: BP 120/77
--- NOTE | 2018-12-10 10:31 | ED ---
Palpitations / Dysrhythmia - HPI Summary HPI Summary: Patient is a 63-year-old female with history of new onset A. fib 2.5 weeks ago presenting to the ED with feelings of palpitations early this morning. She states she is currently asymptomatic and denies any palpitations at this time, however had these palpitations prior to arrival for approximately 1-2 hours. She states she has known atrial fibrillation and is currently wearing a Holter monitor times one month. Ceramics Technician is Dr. Burton. Currently on metoprolol 25 mg and Xarelto 20 mg. She's been taking his medications since her diagnosis. She denies cardioversion. She states she recently underwent a stress test and echocardiogram, both of which were normal. She states over the past 2 weeks she does not believe she has been in atrial fibrillation, but is unsure/unable to tell when she is in or out of A. fib. She does endorse this fluttering sensation today which she attributed to possibly being A. fib. - History of Current Complaint Chief Complaint: EDDysrhythmPalp Time Seen by Provider: 12/10/18 06:18 Hx Obtained From: Patient Onset/Duration: Sudden Onset Timing: Constant Severity Initially: Mild Severity Currently: None Character: Irregular, Fluttering, Skipped Beats Aggravating: Rest Associated Signs & Symptoms: Negative - Risk Factors Cardiac: Negative Pulmonary Embolism: Negative Atrial Fibrillation: Hypertension - Allergy/Home Medications Allergies/Adverse Reactions: Allergies Allergy/AdvReac Type Severity Reaction Status Date / Time Penicillins Allergy Hives Verified 12/10/18 06:11 LATEX Allergy Blisters Uncoded 12/10/18 06:11 Home Medications: Home Medications LevoCETirizine TAB (NF) [Xyzal TAB (NF)] 5 mg PO BEDTIME PRN 12/10/18 [History Confirmed 12/10/18] Metformin HCl 1,000 mg PO BID 12/10/18 [History Confirmed 12/10/18] Metoprolol Tartrate TAB* [Lopressor TAB*] 25 mg PO BID 12/10/18 [History Confirmed 12/10/18] Oxybutynin TAB* [Ditropan TAB*] 15 mg PO DAILY 12/10/18 [History Confirmed 12/10] Pioglitazone TAB* [Actos TAB*] 15 mg PO DAILY 12/10/18 [History Confirmed ] Rivaroxaban TAB(*) [Xarelto 20 mg] 20 mg PO DAILY 12/10/18 [History Confirmed ] Simvastatin (NF) [Zocor (NF)] 40 mg PO DAILY 12/10/18 [History Confirmed ] Valsartan/HCTZ 160/12.5(NF) [Diovan HCT 160/12.5 (NF)] 1 tab PO DAILY 12/10/18 [ History Confirmed 12/10/18] glipiZIDE [Glipizide] 5 mg PO BID 12/10/18 [History Confirmed 12/10/18] raNITIdine HCl [Ranitidine HCl] 300 mg PO BEDTIME 12/10/18 [History Confirmed ] PMH/Surg Hx/FS Hx/Imm Hx Previously Healthy: Yes Endocrine/Hematology History: Reports: Hx Diabetes - ON MEDS Cardiovascular History: Reports: Hx Hypertension - ON MEDS Denies: Hx Pacemaker/ICD Musculoskeletal History: Denies: Hx Osteoporosis Sensory History: Denies: Hx Hearing Aid Psychiatric History: Denies: Hx Panic Disorder - Cancer History Hx Chemotherapy: No Hx Radiation Therapy: No - Surgical History Surgery Procedure, Year, and Place: RT ANKLE SURGERY LIGAMENT REPAIR(DR YE) ; LT ARM FX A CHILD; TONSILECTOMY, ADDENOIDECTOMY, HYSTERECTOMY 30 YRS; HERNIA REPAIR AGE 5 - Immunization History Hx Pertussis Vaccination: No Immunizations Up to Date: Yes Infectious Disease History: No Infectious Disease History: Denies: Traveled Outside the [place] in Last 30 Days - Social History Occupation: Employed Full-time Lives: With Family Alcohol Use: None Hx Substance Use: No Substance Use Type: Reports: None Hx Tobacco Use: No Smoking Status (MU): Never Smoked Tobacco Review of Systems Constitutional: Negative Negative: Fever, Chills, Fatigue, Skin Diaphoresis Positive: Palpitations. Negative: Chest Pain Negative: Shortness Of Breath, Cough Genitourinary: Negative Positive: no symptoms reported, see HPI Negative: Arthralgia, Myalgia Skin: Negative All Other Systems Reviewed And Are Negative: Yes Physical Exam Triage Information Reviewed: Yes Vital Signs On Initial Exam: Initial Vitals Temp Pulse Resp BP Pulse Ox 98.3 F 126 17 152/89 94 12/10/18 06:07 12/10/18 06:07 12/10/18 06:07 12/10/18 06:07 12/10/18 06:07 Vital Signs Reviewed: Yes Appearance: Positive: Well-Appearing, Well-Nourished Skin: Positive: Skin Color Reflects Adequate Perfusion Head/Face: Positive: Normal Head/Face Inspection Eyes: Positive: EOMI, Conjunctiva Clear Neck: Positive: No Lymphadenopathy Respiratory/Lung Sounds: Positive: Clear to Auscultation, Breath Sounds Present Cardiovascular: Positive: IRR, Tachycardia Musculoskeletal: Positive: Strength/ROM Intact Neurological: Positive: Sensory/Motor Intact, Speech Normal Psychiatric: Positive: Affect/Mood Appropriate AVPU Assessment: Alert Diagnostics - Vital Signs Vital Signs Temp Pulse Resp BP Pulse Ox 12/10/18 08:19 84 20 120/77 93 12/10/18 08:18 97.8 F 84 16 120/77 94 12/10/18 08:00 87 18 95 12/10/18 07:56 80 17 125/78 94 12/10/18 07:26 83 17 132/84 96 12/10/18 07:00 86 16 95 12/10/18 06:56 90 14 133/88 96 12/10/18 06:26 100 138/93 96 12/10/18 06:25 101 95 12/10/18 06:07 98.3 F 126 17 152/89 94 - Laboratory Lab Results: Lab Results 12/10/18 12/10/18 12/10/18 Range/Units 06:37 06:37 06:37 WBC 6.0 (3.5-10.8) 10^3/uL RBC 4.04 (3.70-4.87) 10^6 /uL Hgb 12.3 (12.0-16.0) g/dL Hct 36 (35-47) % MCV 89 (80-97) fL MCH 30 (27-31) pg MCHC 34 (31-36) g/dL RDW 13 (10-15) % Plt Count 196 (150-450) 10^3/uL MPV 9.7 (7.4-10.4) fL Neut % (Auto) 72.6 % Lymph % (Auto) 18.4 % [place] % (Auto) 6.7 % Eos % (Auto) 1.8 % Baso % (Auto) 0.5 % Absolute Neuts (auto) 4.4 (1.5-7.7) 10^3/ul Absolute Lymphs (auto) 1.1 (1.0-4.8) 10^3/ul Absolute Monos (auto) 0.4 (0-0.8) 10^3/ul Absolute Eos (auto) 0.1 (0-0.6) 10^3/ul Absolute Basos (auto) 0.0 (0-0.2) 10^3/ul Absolute Nucleated RBC 0.0 10^3/ul Nucleated RBC % 0.1 Sodium 136 (135-145) mmol/L Potassium 3.8 (3.5-5.0) mmol/L Chloride 102 (101-111) mmol/L Carbon Dioxide 25 (22-32) mmol/L Anion Gap 9 (2-11) mmol/L BUN 21 (6-24) mg/dL Creatinine 0.77 (0.51-0.95) mg/dL Est GFR ( Amer) 91.6 (>60) Est GFR (Non-Af Amer) 75.7 (>60) BUN/Creatinine Ratio 27.3 H (8-20) Glucose 214 H (70-100) mg/dL Lactic Acid 0.8 (0.5-2.0) mmol/L Calcium 9.8 (8.6-10.3) mg/dL Total Bilirubin 0.50 (0.2-1.0) mg/dL AST 13 (13-39) U/L ALT 10 (7-52) U/L Alkaline Phosphatase 77 (34-104) U/L Troponin I 0.00 (<0.04) ng/mL Total Protein 6.7 (6.4-8.9) g/dL Albumin 4.0 (3.2-5.2) g/dL Globulin 2.7 (2-4) g/dL Albumin/Globulin Ratio 1.5 (1-3) Result Diagrams: 12/10/18 06:37 12/10/18 06:37 Lab Statement: Any lab studies that have been ordered have been reviewed, and results considered in the medical decision making process. Course/Dx - Course Course Of Treatment: Patient is evaluated for feelings of palpitations this morning. On arrival, patient states she is asymptomatic and denies any concerns or symptoms. Denies any CP or SOB. She states for approximately 1-2 hours she had a "fluttering/palpitations" sensation. This was concerning for her as she has not felt this in the past, despite being in atrial fibrillation with a recent diagnosis 2.5 weeks ago. She is currently on metoprolol and Xarelto. On physical examination, patient appears well, nondiaphoretic and nontoxic in appearing. Lungs CTA. Irregular rhythm with a rate of 124. Discussed case with Dr. Fleming who suggested a low dose of metoprolol. She states she took her dose this morning upon awakening. Toprol 2.5 given. This with good effect of control of rate. Rate decreased to 80. She continues to be asymptomatic. Labs obtained including a troponin which is 0.00. EKG performed immediately on arrival which showed atrial fibrillation. Second EKG 1 hour later continued to show atrial fibrillation with rate control. Unsure when patient began to have a fib. This could have been this morning or within the last 2 weeks. She is anticoagulated. No further workup/cardioversion necessary as patient has known hx and currently asymptomatic. Full workup completed as outpatient last week and was normal. She will f/u with cardiology. - Diagnoses Provider Diagnoses: Atrial fibrillation Discharge - Sign-Out/Discharge Documenting (check all that apply): Patient Departure Patient Received Moderate/Deep Sedation with Procedure: No - Discharge Plan Condition: Stable Disposition: HOME Patient Education Materials: A-fib (Atrial Fibrillation) (ED) Referrals: Dalton Burton DO [Medical Doctor] - Delores Castaneda MD [Primary Care Provider] - Additional Instructions: Please follow up with Cardiology As discussed, if any of your symptoms worsen or continue, return to the ED - Billing Disposition and Condition Condition: STABLE Disposition: Home
== END 2018-12-10 08:18 | disposition home or self-care (01) ==
LOC: ED 06:05
DX: I48.91 Unspecified atrial fibrillation (principal); Z79.01 Long term (current) use of anticoagulants; E11.9 Type 2 diabetes mellitus without complications; Z79.84 Long term (current) use of oral hypoglycemic drugs; I10 Essential (primary) hypertension; Z88.0 Allergy status to penicillin; Z91.040 Latex allergy status
CPT/HCPCS: 36415; 80053; 83605; 84484; 85025; 93005; 96374; 99283; J3490

== ENCOUNTER 2019-02-24 10:52 | Emergency (ER) | payer BC ==
--- NOTE | 2019-02-24 11:19 | ED ---
Lower Extremity - HPI Summary HPI Summary: This pt is a 63 y/o [facility] [place] right leg pain, swelling, and bruising s/p falling on right knee on 02/18/19. Pt reports she was hiking the pending sale to [facility] [employer] in [place] on 02/18/19 when she fell on her right knee. Denies head strike. Pt went to Urgent Care on 02/19/19 where she had X-rays that were all negative for fractures in her RLE but did sustain 2 fractured ribs. Pt notes her swelling and pain have increased since 02/19/19. Pt has been ambulating and bearing weight on right leg but she notes it is painful. PMHx includes afib and HTN. Pt is anticoagulated on Xarelto. - History of Current Complaint Chief Complaint: EDExtremityLower Stated Complaint: RT LEG INJURY PER PT Time Seen by Provider: 02/24/19 11:12 Hx Obtained From: Patient Mechanism Of Injury: Direct Blow Onset of Pain: Immediate Onset/Duration: Still Present Severity Currently: Severe Pain Intensity: 7 Pain Scale Used: 0-10 Numeric Timing: Lasting Days Location: Is Discrete @ - right leg Associated Signs And Symptoms: Positive: Swelling, Bruising, Knee Pain - right. Negative: Fever Aggravating Factor(s): Ambulation, Other - bending Alleviating Factor(s): Nothing Able to Bear Weight: Yes - but painful Related History: Other - s/p falling on right knee on 02/18/19. - Allergies/Home Medications Allergies/Adverse Reactions: Allergies Allergy/AdvReac Type Severity Reaction Status Date / Time Penicillins Allergy Hives Verified 02/24/19 11:26 LATEX Allergy Blisters Uncoded 02/24/19 11:26 Home Medications: Home Medications Metoprolol Succinate 1 tab PO DAILY 02/24/19 [History Confirmed 02/24/19] PMH/Surg Hx/FS Hx/Imm Hx Endocrine/Hematology History: Reports: Hx Anticoagulant Therapy - Xarelto, Hx Diabetes - ON MEDS Cardiovascular History: Reports: Hx Atrial Fibrillation, Hx Hypertension - ON MEDS Denies: Hx Pacemaker/ICD Musculoskeletal History: Denies: Hx Osteoporosis Sensory History: Denies: Hx Hearing Aid Psychiatric History: Denies: Hx Panic Disorder - Cancer History Hx Chemotherapy: No Hx Radiation Therapy: No - Surgical History Surgical History: Yes Surgery Procedure, Year, and Place: RT ANKLE SURGERY LIGAMENT REPAIR(DR YE) ; LT ARM FX A CHILD; TONSILECTOMY, ADDENOIDECTOMY, HYSTERECTOMY 30 YRS; HERNIA REPAIR AGE 5 Infectious Disease History: No Infectious Disease History: Denies: Traveled Outside the [place] in Last 30 Days - Family History Known Family History: Positive: Cardiac Disease - father, Hypertension - father - Social History Alcohol Use: None Hx Substance Use: No Substance Use Type: Reports: None Hx Tobacco Use: No Smoking Status (MU): Never Smoked Tobacco Review of Systems Negative: Fever, Chills Cardiovascular: Negative Respiratory: Negative Musculoskeletal: Other - POSITIVE: right leg pain Positive: Edema - right leg Positive: Bruising - right leg All Other Systems Reviewed And Are Negative: Yes Physical Exam - Summary Physical Exam Summary: Constitutional: Well-developed, Well-nourished, Alert HENT: Normocephalic. Atraumatic, No abrasions/contusions Eyes: EOM normal, PERRL Neck: Trachea midline, No stridor Cardio: Rhythm regular, rate normal, Heart sounds normal, Radial pulses are 2+ and symmetric. Pulmonary/Chest wall: Effort normal, Breath sounds normal, (-) Stridor, Equal chest rise, No rib tenderness Abd: Soft, Appearance normal. (-) Distension, (-) Tenderness. Musculoskeletal: Pain with ROM of the right knee, TTP R patella/tibeal plateau otherwise no tenderness of the right tib/fib and femur. exam limited by body habitus Neuro: Alert,GCS 15. Strength 5/5 all extremities. Ambulates w steady gait Skin: Warm, Dry, Skin intact. Diffuse ecchymosis of the right lower extremity from the distal femur to the ankle Triage Information Reviewed: Yes Vital Signs On Initial Exam: Initial Vitals Temp Pulse Resp BP Pulse Ox 98.2 F 64 18 128/84 99 02/24/19 10:55 02/24/19 10:55 02/24/19 10:55 02/24/19 10:55 02/24/19 10:55 Vital Signs Reviewed: Yes Diagnostics - Vital Signs Vital Signs Temp Pulse Resp BP Pulse Ox 02/24/19 10:55 98.2 F 64 18 128/84 99 - Laboratory Lab Statement: Any lab studies that have been ordered have been reviewed, and results considered in the medical decision making process. - CT CT of RLE CT Interpretation Completed By: Radiologist Summary of CT Findings: IMPRESSION: No fracture of the knee is noted. There is hematoma superficial to the infrapatellar tendon measuring 5.9 x 1.8 x 3.7 cm. No suprapatellar effusion is noted. No intra-articular fluid is noted. Dr. Hatch has reviewed this report. Re-Evaluation - Re-Evaluation First Eval Change: Improved - 12:[address] D/w patient can get MRI outpatient w PCP or orthopedics. Patient in agreement. Ambulated Lower Extremity Course/Dx - Course Course Of Treatment: 63 y/o F on xarelto for A. fib presents with right knee pain and ecchymosis, neg XR at . Physical exam well-appearing, diffuse ecchymosis to the right lower extremity, tenderness only overlying the knee. Full range of motion able to ambulate but with pain. W negative x-rays, significant swelling and bruising, concern for occult fracture. Will check a CT , if negative can follow up outpatient for an MRI to rule out ligamentous injury. - Diagnoses Provider Diagnoses: Knee pain, Hematoma Discharge ED - Sign-Out/Discharge Documenting (check all that apply): Patient Departure - Discharge home Patient Received Moderate/Deep Sedation with Procedure: No - Discharge Plan Condition: Stable Disposition: HOME Patient Education Materials: Knee Pain (ED), Hematoma (ED) Referrals: Delores Castaneda MD [Primary Care Provider] - Anabel Rankin MD [Medical Doctor] - Additional Instructions: You were seen in the emergency department for pain after fall. Your CT scan showed a hematoma but no fractures. Please follow-up with your primary care doctor or orthopedics for an MRI. If any studies were not completed at the time of discharge you will be called with the relevant results. Please follow up with your primary care doctor in next 2-3 days and return to emergency department for worsening or concerning symptoms. - Billing Disposition and Condition Condition: STABLE Disposition: Home - Attestation Statements Document Initiated by Scribe: Yes Documenting Scribe: Mercedez Welch Provider For Whom Teeibe is Documenting (Include Credential): Buck Hatch MD Scribe Attestation: Mercedez Rivas, scribed for Buck Hatch MD on 02/24/19 at 1227. Scribe Documentation Reviewed: Yes Provider Attestation: The documentation as recorded by the scribe, Mercedez Welch accurately reflects the service I personally performed and the decisions made by me, Buck Hatch MD Status of Scribe Document: Viewed
[2019-02-24 12:42] VITALS: BP 130/76
== END 2019-02-24 12:41 | disposition home or self-care (01) ==
LOC: ED 10:52
DX: S80.01XA Contusion of right knee, initial encounter (principal); W19.XXXA Unspecified fall, initial encounter; Y92.89 Other specified places as the place of occurrence of the external cause; I48.91 Unspecified atrial fibrillation; I10 Essential (primary) hypertension; E11.9 Type 2 diabetes mellitus without complications; Z79.01 Long term (current) use of anticoagulants; Z79.84 Long term (current) use of oral hypoglycemic drugs; Z79.899 Other long term (current) drug therapy; Z88.0 Allergy status to penicillin; Z91.040 Latex allergy status
CPT/HCPCS: 99282

== ENCOUNTER 2019-06-04 10:30 | Inpatient (IN) | payer BC ==
--- NOTE | 2019-05-29 09:39 | HP ---
HISTORY AND PHYSICAL: DATE OF ADMISSION/SURGERY: 06/04/19 DATE OF OFFICE VISIT: 05/28/19 SURGEON: Anabel Rankin MD.* (DICTATED BY FLOR MONTES) PROCEDURE: Right total knee arthroplasty. CHIEF COMPLAINT: Right knee pain. HISTORY OF PRESENT ILLNESS: Ms. Griffith is a 63-year-old female with continued complaints of right knee pain. She has failed conservative treatment and elected to proceed with a right total knee arthroplasty. PAST MEDICAL HISTORY: Hypertension, AFib, diabetes, and GERD. PAST SURGICAL HISTORY: Left arm surgery, tonsillectomy, hernia repair, urethral surgery, hysterectomy, ORIF of the right ankle. CURRENT MEDICATIONS: 1. Metoprolol 100 mg daily. 2. Xarelto 20 mg a day. 3. Levocetirizine 5 mg daily. 4. Pioglitazone 15 mg a day. 5. Glipizide 5 mg twice a day. 6. Valsartan/hydrochlorothiazide 160 mg/12.5 mg daily. 7. Oxybutynin 15 mg a day. 8. Simvastatin 40 mg a day. 9. Ranitidine 150 mg twice a day. 10. Metformin 1000 mg twice a day. ALLERGIES: PENICILLIN. FAMILY HISTORY: Diabetes. SOCIAL HISTORY: She is a 63-year-old female. She lives with her . She does not smoke or use drugs. Uses occasional alcohol. REVIEW OF SYSTEMS: A complete 14-point review of systems was reviewed with the patient and is positive for diabetes and GERD. She denies history of DVT, PE, hepatitis, HIV, or anesthesia problems. PHYSICAL EXAMINATION GENERAL: She is well developed, well nourished, in no acute distress. VITAL SIGNS: She is 67 inches tall, weighs 206 pounds. Blood pressure is 130/ 70, heart rate is 74. HEENT: Normocephalic, atraumatic. NECK: Supple. No palpable lymph nodes. PULMONARY: Lungs are clear to auscultation bilaterally. CARDIO: Regular rate and rhythm. Strong S1 and S2. ABDOMEN: Soft, nontender, nondistended. NEUROLOGICAL: She is alert and oriented x3. MUSCULOSKELETAL: Right Lower Extremity: Skin is intact. There are no open wounds or abrasions. There is a moderate effusion of the right knee joint and some tenderness along the medial and lateral joint lines. Range of motion is 10 to 110 degrees of flexion. She is able to dorsiflex and plantarflex. She has 2+ dorsalis pedis pulses and intact sensation. ASSESSMENT AND PLAN: Ms. Griffith is a 63-year-old female with end-stage osteoarthritis of the right knee. She has failed conservative treatment and elected to proceed with a right total knee arthroplasty. The surgery is scheduled for 06/04/[address] Rankin discussed the risks and benefits of the surgery at today's visit and all of her questions were answered. She will follow up with Dr. Rankin in 2 weeks after the surgery. FLOR MONTES [id number]/[facility] #: [id number] ADRIANA
[~2019-06-04 10:30] MED LIST: Buffered Lidocaine 1% SYRIN* 1 ML/SYRINGE INTRADERM ONE; Lactated Ringers 1000 ML Bag* 1,000 ML IV SCH
--- OUTSIDE RECORDS SUMMARY | 2019-06-04 11:33 | XMS REPORT | Continuity of Care Document ---
:1955 External Reference #:[id number] Author Name Anabel Rankin M.D. (transmitted by agent of provider Dolly Avila) Address [address] [facility] [place] [address] Care Team Providers Name Role Phone Nils Ranegl MD - Internal Care Team Information Sales Management Trainee Medicine Delores Benitez MD - Internal Care Team Information Sales Management Trainee [phone] Medicine Problems Active Problems Provider Date Enthesopathy of hip region Kwadwo Simpson M.D. Onset: 06/26/2013 Localized, primary osteoarthritis of the pelvic Anabel Rankin M.D. Onset: 07/2018 region and thigh Localized, primary osteoarthritis Anabel Rankin M.D. Onset: 03/26/2019 Social History Type Date Description Comments Sex Unknown ETOH Use Negative For Never used alcohol Tobacco Use Start: Unknown Patient has never smoked Recreational Drug Use Never Used Drugs Smoking Status Reviewed: 05/28/19 Patient has never smoked Exercise Type/Frequency Does not exercise severe left hip pain prevents exercise Allergies, Adverse Reactions, Alerts Active Allergies Reaction Severity Comments Date Penicillin 06/26/2013 Penicillin V 11/26/2018 Medications Active Medications SIG Qnty Indications Ordering Date Provider Cipro take one tab twice 6tabs Anabel Rankin, 05/27/2019 250mg Tablets a day for three M.D. days Metoprolol Succinate 1 by mouth once a 90tabs Dalton S. 01/14/2019 ER day Burton, DO 100mg Tablets ER 24HR FACC Xarelto 1 by mouth every 90tabs Dalton S. 11/25/2018 20mg Tablets day Burton, DO FACC Blood Glucose test blood sugars Unknown 02/23/2017 [...] every 90tabs Unknown 09/07/2015 15mg day Tablets Shingrix 0.5 milliliters Unknown 50mcg/0.5ML intramuscular now Suspension Rec and 2-3 months later repeat Metformin HCL take one tablet by 180tabs Unknown 1000mg mouth twice a day Tablets Multivitamin Adults once daily Unknown Tablets Vitamin D-3 1 by mouth every Unknown 1000Unit day Capsules History Medications Metoprolol Tartrate 1 1/2 by mouth 270tabs Dalton Burton, 12/13/2018 - twice a day DO [facility] 01/14/2019 25mg Tablets Metoprolol Tartrate 37.5mg twice a 180tabs Dalton Burton, 12/10/2018 - day DO [facility] 12/13/2018 37.5mg Tablets Medications Administered in Office Medication SIG Qnty Indications Ordering Provider Date Technetium TC 99M Dalton Burton DO [facility] 12/04/2018 Tetrofosmin, Per Unit Dose Up To 40 Millicuries Injection Immunizations Description No Information Available Vital Signs Date Vital Result Comment 05/28/2019 1:10pm Height 67 inches 5'7" Weight 206.00 lb Heart Rate 74 /min BP Systolic 130 mmHg BP Diastolic 70 mmHg Body Temperature 96.2 F Pain Level 0 BMI (Body Mass Index) 32.3 kg/m2 05/20/2019 8:02am Height 67 inches 5'7" Weight 206.00 lb with shoes Heart Rate 72 /min BP Systolic Sitting 132 mmHg lue reg cuff BP Diastolic Sitting 70 mmHg lue reg cuff BP Systolic Standing 124 mmHg lue reg cuff BP Diastolic Standing 68 mmHg lue reg cuff Respiratory Rate 14 /min BMI (Body Mass Index) 32.3 kg/m2 Ejection Fraction 55-60% 12/09/18 Results Test Acquired Date Facility Test Result H/L Range Note Urinalysis Profile 05/26/2019 [facility] Urine Color Yellow [address] [place] [address] [phone] Urine Appearance Cloudy Urine Specific Krypton 1.024 Normal 1.010-1.030 Urine pH 5.0 Normal 5-9 Urine Urobilinogen Negative Negative Urine Ketones Negative Negative Urine Protein Negative Negative Urine Leukocytes 2+ Abnormal Negative Urine Blood 1+ Abnormal Negative Urine Nitrite Positive Abnormal Negative Urine Bilirubin Negative Negative Urine Glucose Negative Negative Urine White Blood Cell 3+(>20/hpf) Abnormal Absent Urine Red Blood Cell 1+(3-5/hpf) Abnormal Absent Urine Bacteria 1+ Abnormal Absent Urine Squamous Epithelial Cell Present Abnormal Absent CBC Auto 05/26/2019 [facility] White Blood 6.0 10^3/uL Normal 3.5-10.[address] [place] [address] [phone] Red Blood Count 4.26 10^6/uL Normal 3.70-4.87 Hemoglobin 13.0 g/dL Normal 12.0-16.0 Hematocrit 38 % Normal 35-47 Mean Corpuscular Volume 90 fL Normal 80-97 Mean Corpuscular Hemoglobin 31 pg Normal 27-31 Mean Corpuscular HGB Conc 34 g/dL Normal 31-36 Red Cell Distribution Width 14 % Normal 10-15 Platelet Count 214 10^3/uL Normal 150-450 Mean Platelet Volume 9.5 fL Normal 7.4-10.4 Abs Neutrophils 4.0 10^3/uL Normal 1.5-7.7 Abs Lymphocytes 1.4 10^3/uL Normal 1.0-4.8 Abs Monocytes 0.5 10^3/uL Normal 0-0.8 Abs Eosinophils 0.1 10^3/uL Normal 0-0.6 Abs Basophils 0.0 10^3/uL Normal 0-0.2 Abs Nucleated RBC 0.0 10^3/uL Granulocyte % 66.9 % Lymphocyte % 22.5 % Monocyte % 8.3 % Eosinophil % 1.8 % Basophil % 0.5 % Nucleated Red Blood Cells % 0.0 Inr/Protime 05/26/2019 [facility] Inr 1.03 Normal 0.82-1.[address] [place] [address] [phone] Laboratory test 05/26/2019 [facility] Partial 41.0 High 26.0- 38.[address] [place] [address] Time PTT [phone] Comp Metabolic 05/26/2019 [facility] Sodium 135 mmol/L Normal 135-[address] [place] [address] [phone] Potassium 4.5 mmol/L Normal 3.5-5.0 Chloride 101 mmol/L Normal 101-111 Co2 Carbon Dioxide 27 mmol/L Normal 22-32 Anion Gap 7 mmol/L Normal 2-11 Glucose 201 mg/dL High 70-100 Blood Urea Nitrogen 22 mg/dL Normal 6-24 Creatinine 0.97 mg/dL High 0.51-0.95 BUN/Creatinine Ratio 22.7 High 8-20 Calcium 9.9 mg/dL Normal 8.6-10.3 Total Protein 7.1 g/dL Normal 6.4-8.9 Albumin 4.4 g/dL Normal 3.2-5.2 Globulin 2.7 g/dL Normal 2-4 Albumin/Globulin Ratio 1.6 Normal 1-3 Total Bilirubin 0.40 mg/dL Normal 0.2-1.0 Alkaline Phosphatase 73 U/L Normal 34-104 Alt 15 U/L Normal 7-52 Ast 16 U/L Normal 13-39 Egfr Non- 58.0 >60 Egfr 70.2 >60 2 Type & Screen 05/26/2019 [facility] Patient Blood Type A Positive [address] [place] [address] [phone] Antibody Screen NEGATIVE Urine Culture And 05/26/2019 [facility] Urine Culture SEE RESULT [address] [place] [address] [phone] 1 Standard intensity warfarin therapeutic range: 2.0-3.0 High intensity warfarin therapeutic range: 2.5-3.5 2 Because ethnic data is not always readily available, this report includes an eGFR for both -Americans and non- Americans. The National Kidney Disease Education Program (NKDEP) does not endorse the use of the MDRD equation for patients that are not between the ages of 18 and 70, are , have extremes of body size, muscle mass, or nutritional status, or are non- or non-. According to the National Kidney Foundation, irrespective of diagnosis, the stage of the disease is based on the level of kidney function: Stage Description GFR(mL/min/1.73 m(2)) 1 Kidney damage with normal or decreased GFR 90 2 Kidney damage with mild decrease in GFR 60-89 3 Moderate decrease in GFR 30-59 4 Severe decrease in GFR 15-29 5 Kidney failure <15 (or dialysis) 3 SEE RESULT BELOW Name: ZOEYINGRID L : [address]: Anabel Rankin MD Acct: [id number] Unit: [id number] AGE: 63 Location: [facility] Re05/26/19 SEX: F Status: REG REF SPEC: [id number] SHANNON: 05/26/19-[address] [facility] [address]: Anabel Rankin MD REQ: [id number] RECD: 05/26/19 STATUS: COMP [facility] DR: Delores Benitez MD _ SOURCE: URINE SPDESC: ORDERED: Urine Culture QUERIES: Urine Source: Clean Catch Procedure Result Reported Site Urine Culture Final 05/28/19- 1027 ML Organism 1 ESCHERICHIA COLI [place] Count >100,000 (Many) CFU/ML 1. ESCHERICHIA COLI [facility].I[facility]. RX --------- ------ Ampicillin 8 S Cefazolin <=4 S Cefepime <=1 S Ceftriaxone <=1 S Ciprofloxacin <=0.25 S Gentamicin <=1 S Levofloxacin <=0.12 S Meropenem <=0.25 S Nitrofurantoin <=16 S Tetracycline <=1 S Pipercillin/Tazobactam <=4 S Trimethoprim/Sulfamethoxazole <=20 S Amoxicillin/Clavulanic Acid 4 S Aztreonam <=1 S Contact the Microbiology Department for any additional antibiotic reporting. * [facility] - Main Lab . END OF REPORT DEPARTMENT OF PATHOLOGY, [address] [place] [address] Иван Landeros M.D. Director [facility] # [id number] Procedures Date Code Description Status 05/20/2019 48827 EKG Tracing & Interpretation Completed 01/14/2019 52452 EKG Tracing & Interpretation Completed 12/09/2018 87109 ECHO Transthoracic, Real-Time 2D With Doppler And Color Completed Flow 12/09/2018 91150 ECHO Transthoracic, Real-Time 2D With Doppler And Color Completed Flow 12/04/2018 23772 Event Monitor/Phys Review/Interp. Completed 12/04/2018 57718 Stress Test Completed 12/04/2018 25081 Myocardial Perfusion Imaging Tomographic (Spect) Single Completed Study 11/27/2018 35961 EKG Tracing & Interpretation Completed Medical Devices Description No Information Available Encounters Type Date Location Provider Dx Diagnosis Office Visit 05/20/2019 [facility] Dalton Blake Z01.810 Encounter for 8:20a Of Urban Burton, DO FACC preprocedural cardiovascular examination I48.0 Paroxysmal atrial fibrillation E11.69 Type 2 diabetes mellitus with other specified complication I10 Essential (primary) hypertension E78.5 Hyperlipidemia, unspecified Office Visit 05/07/2019 8:30a [facility] Anabel Chucho, M25.561 Pain in right at [facility].D. knee M25.461 Effusion, right knee M17.11 Unilateral primary osteoarthritis, right knee M25.551 Pain in right hip M25.552 Pain in left hip M16.11 Unilateral primary osteoarthritis, right hip M16.12 Unilateral primary osteoarthritis, left hip Office Visit 03/26/2019 10:30a [facility] Anabel Chucho, M25.561 Pain in right at [place] M.D. knee M25.461 Effusion, right knee M17.11 Unilateral primary osteoarthritis, right knee M25.551 Pain in right hip M25.552 Pain in left hip M16.11 Unilateral primary osteoarthritis, right hip M16.12 Unilateral primary osteoarthritis, left hip Office Visit 01/14/2019 11:45a [facility] Dalton S. I48.0 Paroxysmal atrial Of Urban Burton DO fibrillation FACC E11.69 Type 2 diabetes mellitus with other specified complication I10 Essential (primary) hypertension E78.5 Hyperlipidemia, unspecified Office Visit 11/27/2018 9:00a [facility] Dalton S. I48.0 Paroxysmal atrial Of Urban Burton DO fibrillation FAC E11.69 Type 2 diabetes mellitus with other specified complication I10 Essential (primary) hypertension E78.5 Hyperlipidemia, unspecified E66.8 Other obesity Z68.32 Body mass index (BMI) 32.0-32.9, adult Assessments Date Code Description Provider 05/28/2019 M25.561 Pain in right knee Anabel Rankin M.D. 05/28/2019 M25.461 Effusion, right knee Anabel Rankin M.D. 05/28/2019 M17.11 Unilateral primary osteoarthritis, right Anabel Rankin M.D. knee 05/20/2019 Z01.810 Encounter for preprocedural Dalton Burton DO [facility] cardiovascular examination 05/20/2019 I48.0 Paroxysmal atrial fibrillation Dalton Burton DO [facility] 05/20/2019 E11.69 Type 2 diabetes mellitus with other Dalton Burton, DO [facility] specified complication 05/20/2019 I10 Essential (primary) hypertension Dalton Burton DO [facility] 05/20/2019 E78.5 Hyperlipidemia, unspecified Dalton Burton, DO [facility] 05/07/2019 M25.561 Pain in right knee Anabel Rankin M.D. 05/07/2019 M25.461 Effusion, right knee Anabel Rankin M.D. 05/07/2019 M17.11 Unilateral primary osteoarthritis, right Anabel Rankin M.D. knee 05/07/2019 M25.551 Pain in right hip Anabel Rankin M.D. 05/07/2019 M25.552 Pain in left hip Anabel Rankin M.D. 05/07/2019 M16.11 Unilateral primary osteoarthritis, right Anabel Rankin M.D. hip 05/07/2019 M16.12 Unilateral primary osteoarthritis, left Anabel Rankin M.D. hip 03/26/2019 M25.561 Pain in right knee Anabel Rankin M.D. 03/26/2019 M25.461 Effusion, right knee Anabel Rankin M.D. 03/26/2019 M17.11 Unilateral primary osteoarthritis, right Anabel Rankin M.D. knee 03/26/2019 M25.551 Pain in right hip Anabel Rankin M.D. 03/26/2019 M25.552 Pain in left hip Anabel Rankin M.D. 03/26/2019 M16.11 Unilateral primary osteoarthritis, right Anabel Rankin M.D. hip 03/26/2019 M16.12 Unilateral primary osteoarthritis, left Anabel Rankin M.D. hip 01/14/2019 I48.0 Paroxysmal atrial fibrillation Dalton Burton, DO FACC 01/14/2019 E11.69 Type 2 diabetes mellitus with other Dalton Burton, DO FAC specified complication 01/14/2019 I10 Essential (primary) hypertension Dalton Burton, DO FACC 01/14/2019 E78.5 Hyperlipidemia, unspecified Dalton Burton, DO FACC 12/09/2018 I48.0 Paroxysmal atrial fibrillation Dalton Burton, DO FAC 12/09/2018 I48.0 Paroxysmal atrial fibrillation [facility]ca ECHO Schedule 12/05/2018 I48.0 Paroxysmal atrial fibrillation Dalton Burton, DO FACC 12/04/2018 I48.0 Paroxysmal atrial fibrillation Dalton Burton, DO FAC 12/04/2018 I48.0 Paroxysmal atrial fibrillation Dalton Burton, DO FAC 11/27/2018 I48.0 Paroxysmal atrial fibrillation Dalton Burton, DO FACC 11/27/2018 E11.69 Type 2 diabetes mellitus with other Dalton Burton, DO FAC specified complication 11/27/2018 I10 Essential (primary) hypertension Dalton Burton, DO FACC 11/27/2018 E78.5 Hyperlipidemia, unspecified Dalton Burton, DO FAC 11/27/2018 E66.8 Other obesity Dalton Burton, DO FAC 11/27/2018 Z68.32 Body mass index (BMI) 32.0-32.9, adult Dalton Burton, DO [facility] Plan of Treatment Future Appointment(s):06/23/2019 2:45 pm - Anabel Rankin M.D. at [facility] at [id number]/04/2019 8:30 am - NUSRAT Stroud at [facility] at [id number]/04/2019 8:30 am - Anabel Rankin M.D. at [facility] at [id number]/28/2019 - Anabel Rankin M.D.M25.561 Pain in right kneeFollow up:Follow up: 2 weeks after [id number] Effusion, right kneeM17.11 Unilateral primary osteoarthritis, right knee Functional Status Description No Information Available Mental Status Description No Information Available Referrals Description No Information Available
--- OUTSIDE RECORDS SUMMARY | 2019-06-04 11:34 | XMS REPORT | Continuity of Care Document ---
:1955 External Reference #:[id number] Author Name Delores Benitez MD Address [address] [place] [id number] Problems Active Problems Provider Date Type 2 diabetes mellitus Onset: 09/07/2015 Urgent desire to urinate Delores Benitez MD Onset: 02/21/2016 Gastroesophageal reflux disease Delores Benitez MD Onset: 02/21/2016 Pure hypercholesterolemia Delores Benitez MD Onset: 02/21/2016 Allergic rhinitis due to pollen Delores Benitez MD Onset: 02/21/2016 Essential hypertension Delores Benitez MD Onset: 02/21/2016 Mixed hyperlipidemia Delores Benitez MD Onset: 10/16/2016 Social History Type Date Description Comments Sex Unknown Tobacco Use Start: Unknown Patient has never smoked Smoking Status Reviewed: 03/07/19 Patient has never smoked Allergies, Adverse Reactions, Alerts Active Allergies Reaction Severity Comments Date Penicillin 09/07/2015 Medications Active Medications SIG Qnty Indications Ordering Date Provider Clotrimazole to affected area 45gm B37.2 [facility], 05/27/2019 1% Cream three times a day Delores Matos MD x 2 wks Shingrix 2 shot series 2units Z00.01 [facility], 03/07/2019 50mcg/0.5ML Delores Matos MD Suspension Rec Xarelto 1 by mouth every 90tabs I48.0 [facility], 11/25/2018 20mg Tablets day Delores Matos MD Fluticasone Propionate 2 sprays in each 16units J30.1 [facility], 02/23/2017 nostril daily Delores Matos MD 50mcg/Act Suspension Premium Blood Glucose test 1-2 times a 100units E11.9 [facility], 02/23/2017 Test Strips day at alternating Delores Matos MD Strips times and as needed Flector aplly patch twice 60units M25.552 [facility], 10/01/2015 1.3% Patches a day as needed Delores Matos MD Pioglitazone HCL take 1 tablet by 90tabs E11.9 [facility], 09/07/2015 15mg mouth once daily Delores Matos MD Tablets Glipizide take 1 tablet by 180tabs E11.9 [facility], 09/07/2015 5mg Tablets mouth twice a day Delores Matos MD Metformin HCL take 1 tablet by 180tabs E11.9 [facility], 09/07/2015 1000mg mouth twice a day Delores Matos MD Tablets Valsartan-Hydrochlorot take 1 tablet once 90tabs I10 [facility], 09/07/2015 hiazide daily Delores Matos MD 160-12.5mg Tablets Oxybutynin Chloride ER take 1 tablet by 90tabs R39.15 [facility], 09/07/2015 mouth once daily Delores Matos MD 15mg Tablets ER 24HR Simvastatin Take 1 Tablet By 90tabs E78.2 [facility], 09/07/2015 40mg Tablets Mouth AT Bedtime Delores Matos MD Ranitidine HCL Take 2 Tablets By 180tabs K21.9 [facility], 09/07/2015 150mg Mouth AT Bedtime Delores Matos MD Tablets Levocetirizine Take 1 Tablet By 90tabs J30.1 [facility], 09/07/2015 Dihydrochloride Mouth AT Bedtime Delores Matos MD 5mg If Needed Tablets Proair HFA 2 p four times a 25.5gm J45.998 [facility], 09/07/2015 108(90Base) day as needed Delores Matos MD mcg/Act Aerosol Metoprolol Succinate 1 by mouth every I48.0 Unknown ER day 100mg Tablets ER 24HR History Medications Tramadol HCL take one tablet 30tabs S89.91xA Delores Benitez 02/28/2019 - 50mg by mouth four MD Carlo 03/07/2019 Tablets times a day as needed pain Cephalexin 1 by mouth 21tabs L03.115 Delores Benitez 02/28/2019 - 500mg three times a MD Carlo 05/27/2019 Tablets day Immunizations CPT Code Status Date Vaccine Lot # [id number] Given 03/07/2019 Influenza Vac, Quadrivalent, Split, 0.5mL Dosage, [id number] Im Use [id number] Given 06/12/2016 Influenza Vac, Quadrivalent, Split, 0.5mL Dosage, [id number] Im Use [id number] Given 09/06/2015 Zoster (Zostavax) [id number] Given 09/06/2015 Influenza Virus Vaccine,Quadrivalent,Split,Preserv Free, 0.5mL,[place] [id number] Given 08/11/2015 Zoster (Zostavax) 97836 Given 06/25/2014 Pneumococcal 23 Immunization Adult Or Immunosuppressed Patient [id number] Given 03/15/2014 Tdap (Adacel) Ages 7 And Above Only [id number] Refused 02/23/2017 Influenza Vac, Quadrivalent, Split, 0.5mL Dosage, Im Use Vital Signs Date Vital Result Comment 05/27/2019 3:09pm Body Temperature 97.1 F Weight 207.00 lb Heart Rate 76 /min BP Systolic 132 mmHg BP Diastolic 66 mmHg Height 66.5 inches 5'6.50" BMI (Body Mass Index) 32.9 kg/m2 03/07/2019 11:07am Weight 208.00 lb Heart Rate 60 /min BP Systolic 128 mmHg BP Diastolic 70 mmHg Height 66.5 inches 5'6.50" BMI (Body Mass Index) 33.1 kg/m2 Results Test Acquired Date Facility Test Result H/L Range Note Microalb/Creat 03/07/2019 [facility] Creatinine, Urine 71.4 mg/dL Panel Microalb/Creat Urine 33.31 ug/mgCreat High 0.00-30.00 Microalbumin 23.8 ug/ml High 0.0-20.0 Laboratory test 03/07/2019 [facility] Fit(Fecal Occult Negative Negative finding Blood) Xray 03/07/2019 [facility] Mammogram <pending> [place] [address] Tomosynthesis [phone] Screening Basic (BMP) 02/28/2019 [facility] Sodium 135 mmol/L 135-146 1, 2 Potassium 4.5 mmol/L 3.5-5.2 Chloride# 97 mmol/L 97-110 3 Carbon Dioxide 22 mmol/L Low 24-34 Glucose 182 mg/dL High 70-105 BUN 23 mg/dL 6-26 Creatinine 1.1 mg/dL 0.5-1.4 Calcium 9.8 mg/dL 8.5-10.5 4 Female Egfr 53 Low >60 5 Male Egfr 70 >60 6 Anion Gap 16 mmol/L High 5-15 7 CBC with Auto Diff-fcmg 02/28/2019 [facility] WBC 7.9 K/uL 4.1-11.0 RBC 3.95 M/uL Low 4.00-5.40 Hemoglobin 12.0 gm/dL 12.0-16.0 Hematocrit 35.5 % Low 36.0-47.0 MCV 89.9 fL 80.0-97.0 MCH 30.4 pg 27.0-32.0 MCHC 33.8 g/dL 32.0-36.0 RDW 14.5 % 11.5-14.5 PLT Count 307 K/ul 140-400 MPV 9.3 FL 7.1-10.7 Neutrophil 82.8 % High 35.0-75.0 Lymphocyte 12.2 % Low 16.0-52.0 Monocyte 4.1 % 2.0-10.0 Eosinophil 0.5 % 0.0-5.0 Basophil 0.4 % 0.0-4.0 Abs Neutrophils 6.6 K/uL 2.1-8.0 Abs Lymphocytes 1.0 K/uL 0.8-5.5 Abs Monocytes 0.3 K/uL 0.1-1.0 Abs Eosinophils 0.0 K/uL 0.0-0.5 Abs Basophils 0.0 K/uL 0.0-0.3 Hemoglobin A1c 02/28/2019 [facility] Hemoglobin A1c 7.6 % High 4.1-5.9 Estimated Average Glucose Calc 171 mg/dL High 71-140 Lipid Treatment 02/28/2019 [facility] Cholesterol 182 mg/dL 50-199 Triglycerides 99 mg/dL 30-200 HDL 70 mg/dL 35-85 8 Chol/ HDL Ratio 2.6 ratio Low 3.7-5.6 VLDL 20 mg/dL 2-29 LDL (Calc) 92 mg/dL 20-99 9 Alt 11 U/L 3-42 Ast 15 U/L 8-42 1 This sample is drawn by:NB. 2 Updated reference range on new analyzer 3 Updated reference range on new analyzer 4 Updated reference range 10-23-2018 5 Concerning GFR Guidelines for Americans: Normal function or mild renal disease, if clinically at risk: >/= 60 mL/min Moderately decreased: 30-59 Severely decreased: 15-29 Renal failure: <15 There is reduced accuracy above 60ml/min/1.73 m squared, but the numeric value may be clinically useful in the near 60 range 6 Concerning GFR Guidelines: Normal function or mild renal disease, if clinically at risk: >/= 60 mL/min Moderately decreased: 30-59 Severely decreased: 15-29 Renal failure: <15 There is reduced accuracy above 60ml/min/1.73 m squared, but the numeric value may be clinically useful in the near 60 range Glomerular Filtration Rate (GFR) is estimated based on the CKD-EPI equation, which assumes a steady state for [...] drugs that are excreted by the kidneys. 7 Updated Reference Range -2017 8 Per NCEP ATP III Guidelines: Results lower than 40 mg/dL are suggestive of increased risk for coronary artery disease. Results > or = to 60 mg/dL are considered a negative risk factor. 9 Per NCEP ATP III Guidelines: Normal Population <130 Patients with medical conditions: CHD/DM Optimal: <100 Borderline high: 130-159 High: 160-189 Very high: >189 Procedures Date Code Description Status 03/18/2018 355302062 Bone Mineral Density Test Completed 03/18/2018 [id number] Mammogram Completed 03/13/2017 [id number] Mammogram Completed 12/05/2013 [id number] Bone Mineral Density Test Completed 11/25/2013 [id number] Mammogram Completed 10/15/2012 [id number] Mammogram Completed 08/26/2007 [id number] Colonoscopy Completed Medical Devices Description No Information Available Encounters Type Date Location Provider Dx Diagnosis Office Visit 03/07/2019 Delores Vieyra E66.9 Obesity, unspecified 10:45a MD Carlo Z00.01 Encounter for general adult medical exam w abnormal findings E11.9 Type 2 diabetes mellitus without complications S89.91xD Unspecified injury of RIGHT lower leg, subsequent encounter I48.0 Paroxysmal atrial fibrillation E78.2 Mixed hyperlipidemia R39.15 Urgency of urination Z12.31 Encntr screen mammogram for malignant neoplasm of breast I10 Essential (primary) hypertension K21.9 Gastro-esophageal reflux disease without esophagitis J30.1 Allergic rhinitis due to pollen Z13.31 Encounter for screening for depression M25.552 Pain in LEFT hip Z68.33 Body mass index (BMI) 33.0-33.9, adult Office Visit 02/28/2019 10:15a Delores Vieyra E66.9 Obesity, unspecified MD Carlo S89.91xA Unspecified injury of RIGHT lower leg, initial encounter E11.9 Type 2 diabetes mellitus without complications I48.0 Paroxysmal atrial fibrillation Z12.11 Encounter for screening for malignant neoplasm of colon L03.115 Cellulitis of RIGHT lower limb S22.42xA Multiple fractures of ribs, LEFT side, init for clos fx Z68.33 Body mass index (BMI) 33.0-33.9, adult Assessments Date Code Description Provider 05/27/2019 E66.9 Obesity, unspecified Delores Benitez MD 05/27/2019 Z01.818 Encounter for other preprocedural Delores Benitez MD examination 05/27/2019 E11.9 Type 2 diabetes mellitus without Delores Benitez MD complications 05/27/2019 I48.0 Paroxysmal atrial fibrillation Delores Benitez MD 05/27/2019 E78.2 Mixed hyperlipidemia Delores Benitez MD 05/27/2019 I10 Essential (primary) hypertension Delores Benitez MD 05/27/2019 K21.9 Gastro-esophageal reflux disease without Delores Benitez MD esophagitis 05/27/2019 R39.15 Urgency of urination Delores Benitez MD 05/27/2019 B37.2 Candidiasis of skin and nail Delores Benitez MD 05/27/2019 Z68.32 Body mass index (BMI) 32.0-32.9, adult Delores Benitez MD 03/07/2019 E66.9 Jane, unspecified Delores Benitez MD 03/07/2019 Z00.01 Encounter for general adult medical Delores Benitez MD examination with abnormal findings 03/07/2019 E11.9 Type 2 diabetes mellitus without Delores Benitez MD complications 03/07/2019 S89.91xD Unspecified injury of RIGHT lower leg, Delores Benitez MD subsequent encounter 03/07/2019 I48.0 Paroxysmal atrial fibrillation Delores Benitez MD 03/07/2019 E78.2 Mixed hyperlipidemia Delores Benitez MD 03/07/2019 R39.15 Urgency of urination Delores Benitez MD 03/07/2019 Z12.31 Encounter for screening mammogram for Delores Benitez MD malignant neoplasm of breast 03/07/2019 I10 Essential (primary) hypertension Delores Benitez MD 03/07/2019 K21.9 Gastro-esophageal reflux disease without Delores Benitez MD esophagitis 03/07/2019 J30.1 Allergic rhinitis due to pollen Delores Benitez MD 03/07/2019 Z13.31 Encounter for screening for depression Delores Benitez MD 03/07/2019 M25.552 Pain in LEFT hip Delores Benitez MD 03/07/2019 Z68.33 Body mass index (BMI) 33.0-33.9, adult Delores Benitez MD 03/07/2019 E11.9 Type 2 diabetes mellitus without [facility] complications 03/07/2019 Z12.11 Encounter for screening for malignant [facility] neoplasm of colon 02/28/2019 E66.9 Obesity, unspecified Delores Benitez MD 02/28/2019 S89.91xA Unspecified injury of RIGHT lower leg, Delores Benitez MD initial encounter 02/28/2019 E11.9 Type 2 diabetes mellitus without Delores Benitez MD complications 02/28/2019 I48.0 Paroxysmal atrial fibrillation Delores Benitez MD 02/28/2019 Z12.11 Encounter for screening for malignant Delores Benitez MD neoplasm of colon 02/28/2019 L03.115 Cellulitis of RIGHT lower limb Delores Benitez MD 02/28/2019 S22.42xA Multiple fractures of ribs, LEFT side, Delores Benitez MD initial encounter for closed fracture 02/28/2019 Z68.33 Body mass index (BMI) 33.0-33.9, adult Delores Benitez MD 02/28/2019 E11.9 Type 2 diabetes mellitus without [facility] complications Plan of Treatment Future Appointment(s):09/30/2019 9:15 am - Delores Benitez MD at [facility]27 - Delores Benitez MDE66.9 Obesity, yzppegdzmakE07.818 Encounter for other preprocedural igmrjryekqsB03.9 Type 2 diabetes mellitus without complicationsNew Labs:CBC with Auto Diff-fcmg, Ordered: 05/27/19Basic (BMP), Ordered: 05/27/19Hemoglobin A1c, Ordered: 05/27/19Lipid Treatment, Ordered: 09/10Follow up:4 mos cancel 06/03I48.0 Paroxysmal atrial yjpdvwjctjrtP94.2 Mixed zukmzidvwzlqfsA25 Essential (primary) mkpemccdfcgvE12.9 Gastro-esophageal reflux disease without ulfpoxsezlaD06.15 Urgency of libkeszkaF26.2 Candidiasis of skin and nailNew Medication:Clotrimazole 1 % - to affected area three times a day x 2 wksZ68.32 Body mass index (BMI) 32.0-32.9, adult Functional Status Description No Information Available Mental Status Description No Information Available Referrals Refer to Reason for Referral Status Appt Date Anabel Rankin DR 03/10-SCHEDULED WITH LEILANI WILBURN--AA Closed 2018 [address] [place] [address] [phone]
--- OUTSIDE RECORDS SUMMARY | 2019-06-04 11:34 | XMS REPORT | Continuity of Care Document ---
:1955 External Reference #:[id number] Author Name Anabel Rankin M.D. (transmitted by agent of provider Mariah Guthrie) Address [address] [facility] [place] [address] Care Team Providers Name Role Phone Nils Rangel MD - Internal Care Team Information [employer] Medicine Delores Benitez MD - Internal Care Team Information [employer] [phone] Medicine Problems Active Problems Provider Date Enthesopathy of hip region Kwadwo Simspon M.D. Onset: 06/26/2013 Localized, primary osteoarthritis of the pelvic Anabel Rankin M.D. Onset: 07/2018 region and thigh Localized, primary osteoarthritis Anabel Rankin M.D. Onset: 03/26/2019 Social History Type Date Description Comments Sex Unknown ETOH Use Negative For Never used alcohol Tobacco Use Start: Unknown Patient has never smoked Recreational Drug Use Never Used Drugs Smoking Status Reviewed: 05/07/19 Patient has never smoked Exercise Type/Frequency Does not exercise severe left hip pain prevents exercise Allergies, Adverse Reactions, Alerts Active Allergies Reaction Severity Comments Date Penicillin 06/26/2013 Penicillin V 11/26/2018 Medications Active Medications SIG Qnty Indications Ordering Date Provider Metoprolol Succinate 1 by mouth once a 90tabs Dalton SManasa 01/14/2019 ER day Burton, DO 100mg Tablets [...] Burton, 12/13/2018 - twice a day DO [facility] 01/14/2019 25mg Tablets Metoprolol Tartrate 37.5mg twice a 180tabs Dalton Burton, 12/10/2018 - day DO [facility] 12/13/2018 37.5mg Tablets Medications Administered in Office Medication SIG Qnty Indications Ordering Provider Date Technetium TC 99M Dalton Burton, DO [facility] 12/04/2018 Tetrofosmin, Per Unit Dose Up To 40 Millicuries Injection Immunizations Description No Information Available Vital Signs Date Vital Result Comment 05/07/2019 8:24am Height 67 inches 5'7" Heart Rate 63 /min BP Systolic 132 mmHg BP Diastolic 78 mmHg Respiratory Rate 16 /min Body Temperature 97.1 F Pain Level 0 03/26/2019 11:25am Height 67 inches 5'7" Weight 209.00 lb Heart Rate 67 /min BP Systolic 138 mmHg BP Diastolic 90 mmHg Respiratory Rate 16 /min Body Temperature 97.6 F Pain Level 5 BMI (Body Mass Index) 32.7 kg/m2 Results Description No Information Available Procedures Date Code Description Status 01/14/2019 50067 EKG Tracing & Interpretation Completed 12/09/2018 41674 ECHO Transthoracic, Real-Time 2D With Doppler And Color Completed Flow 12/09/2018 70392 ECHO Transthoracic, Real-Time 2D With Doppler And Color Completed Flow 12/04/2018 85299 Event Monitor/Phys Review/Interp. Completed 12/04/2018 05637 Stress Test Completed 12/04/2018 10019 Myocardial Perfusion Imaging Tomographic (Spect) Single Completed Study 11/27/2018 63905 EKG Tracing & Interpretation Completed Medical Devices Description No Information Available Encounters Type Date Location Provider Dx Diagnosis Office Visit 03/26/2019 [facility] Anabel Rankin, M25.561 Pain in right 10:30a at [facility] knee M25.461 Effusion, right knee M17.11 Unilateral primary osteoarthritis, right knee M25.551 Pain in right hip M25.552 Pain in left hip M16.11 Unilateral primary osteoarthritis, right hip M16.12 Unilateral primary osteoarthritis, left hip Office Visit 01/14/2019 11:45a [facility] Dalton S. I48.0 Paroxysmal atrial Of [employer]other Burton, DO fibrillation FACC E11.69 Type 2 diabetes mellitus with other specified complication I10 Essential (primary) hypertension E78.5 Hyperlipidemia, unspecified Office Visit 11/27/2018 9:00a [facility] Dalton S. I48.0 Paroxysmal atrial Of [employer] Smoother Burton, DO fibrillation FACC E11.69 Type 2 diabetes mellitus with other specified complication I10 Essential (primary) hypertension E78.5 Hyperlipidemia, unspecified E66.8 Other obesity Z68.32 Body mass index (BMI) 32.0-32.9, adult Assessments Date Code Description Provider 05/07/2019 M25.561 Pain in right knee Anabel Rankin M.D. 05/07/2019 M25.461 Effusion, right knee Anabel aRnkin M.D. 05/07/2019 M17.11 Unilateral primary osteoarthritis, right Anabel Rankin M.D. knee 05/07/2019 M25.551 Pain in right hip Anabel Rankin M.D. 05/07/2019 M25.552 Pain in left hip Anabel Carlo Rankin.D. 05/07/2019 M16.11 Unilateral primary osteoarthritis, right Anabel Cutlerke, Carlo.D. hip 05/07/2019 M16.12 Unilateral primary osteoarthritis, left Anabel Rankin, M.D. hip 03/26/2019 M25.561 Pain in right knee Anabel Chucho, M.D. 03/26/2019 M25.461 Effusion, right knee Anabelsaleem Rankin, M.D. 03/26/2019 M17.11 Unilateral primary osteoarthritis, right Anabel Chucho, M.D. knee 03/26/2019 M25.551 Pain in right hip Anabel Chucho, M.D. 03/26/2019 M25.552 Pain in left hip Anabel Cutlerke, M.D. 03/26/2019 M16.11 Unilateral primary osteoarthritis, right Anabel CutlerCarlo blue.D. hip 03/26/2019 M16.12 Unilateral primary osteoarthritis, left Anabel CutlerCarlo blue.D. hip 01/14/2019 I48.0 Paroxysmal atrial fibrillation Dalton SManasa Burton, DO FAC 01/14/2019 E11.69 Type 2 diabetes mellitus with other Dalton SManasa Burton, DO FAC specified complication 01/14/2019 I10 Essential (primary) hypertension Dalton AnnaManasa Burton, DO FAC 01/14/2019 E78.5 Hyperlipidemia, unspecified Daltonsami Hernandezno, DO FAC 12/09/2018 I48.0 Paroxysmal atrial fibrillation Dalton AnnaManasa Burton, DO FAC 12/09/2018 I48.0 Paroxysmal atrial fibrillation Ica ECHO Schedule 12/05/2018 I48.0 Paroxysmal atrial fibrillation Daltonsami Burton, DO FACC 12/04/2018 I48.0 Paroxysmal atrial fibrillation Dalton SManasa Burton, DO FACC 12/04/2018 I48.0 Paroxysmal atrial fibrillation Dalton SManasa Burton, DO FACC 11/27/2018 I48.0 Paroxysmal atrial fibrillation Daltonsami Hernandezno, DO FAC 11/27/2018 E11.69 Type 2 diabetes mellitus with other Dalton Burton, DO FAC specified complication 11/27/2018 I10 Essential (primary) hypertension Dalton Burton, DO FACC 11/27/2018 E78.5 Hyperlipidemia, unspecified Dalton Burton, DO [facility] 11/27/2018 E66.8 Other obesity Dalton Burton, DO [facility] 11/27/2018 Z68.32 Body mass index (BMI) 32.0-32.9, adult Dalton Burton, DO [facility] Plan of Treatment 05/07/2019 - Anabel Rankin M.D.M25.561 Pain in right kneeFollow up:Follow up: 7-10 days before nkrxqkkW03.461 Effusion, right kneeM17.11 Unilateral primary osteoarthritis, right kneeM25.551 Pain in right hipM25.552 Pain in left hipM16.11 Unilateral primary osteoarthritis, right hipM16.12 Unilateral primary osteoarthritis, left hip Functional Status Description No Information Available Mental Status Description No Information Available Referrals Description No Information Available
[2019-06-04] MEDS ORDERED: Clindamycin 900 MG/D5W BAG(*) 900 MG/50 ML BAG IVPB ONE (12:17)
[2019-06-04] MEDS ORDERED: Buffered Lidocaine 1% SYRIN* 1 ML/SYRINGE INTRADERM ONE (12:40)
[2019-06-04] MEDS ORDERED: Bupivacaine 0.25% SDV* 30 ML ONE (14:46)
[2019-06-04] MEDS ORDERED: Midazolam* 1 MG/ML 5 ML VIAL (5 MG) ONE ×2 (14:52→15:42)
[2019-06-04] MEDS ORDERED: fentaNYL* 50 MCG/ML 2 ML VIAL (100 MCG VIAL) ONE (15:25)
[2019-06-04] MEDS ORDERED: Propofol* 10 MG/ML 20 ML BTL ONE (15:44)
[2019-06-04] MEDS ORDERED: Dexamethasone IV* 4 MG/ML 1 ML (4 MG) ONE (16:28)
[2019-06-04] MEDS ORDERED: ROPIVACAINE 5 MG/ML 30 ML BTL (0.5%) ONE (16:54)
[2019-06-04] MEDS ORDERED: Midazolam* 1 MG/ML 2 ML VIAL (2 MG) ONE (16:57)
[2019-06-04] MEDS ORDERED: diPHENhydraMINE IV* 50 MG/ML 1 ml VIAL (BENADRYL) IV PRN (17:03)
[2019-06-04] MEDS ORDERED: Ondansetron ODT TAB* 4 MG PO PRN (17:03)
[2019-06-04] MEDS ORDERED: traZODone TAB* 50 MG TAB PO PRN (17:03)
[2019-06-04] MEDS ORDERED: Morphine INJ* 2 MG/ML 1 ML SYRINGE (TWO MG - NEW SYRINGE VERSION) IV PRN (17:03)
[2019-06-04] MEDS ORDERED: Magnesium Hydroxide LIQ* 30 ML UDC PO PRN (17:03)
[2019-06-04] MEDS ORDERED: oxyCODONE/Acetamin 5/325 MG* TAB PO PRN ×2 (17:03→17:29)
[2019-06-04] MEDS ORDERED: diPHENhydraMINE PO* 25 MG PO PRN (17:03)
[2019-06-04] MEDS ORDERED: Polyethylene Glycol 3350* 17 GM PACKET PO PRN (17:03)
[2019-06-04] MEDS ORDERED: Albuterol HFA INHALER* 8 gm MDI INH PRN (17:09)
[2019-06-04] MEDS ORDERED: Ondansetron INJ* 2 MG/ML VIAL ONE (17:25)
[2019-06-04] MEDS ORDERED: Ketorolac INJ* 30 MG/ML 1 ML VIAL ONE (17:27)
[2019-06-04] MEDS ORDERED: Ondansetron INJ* 2 MG/ML VIAL IV PRN (17:29)
[2019-06-04] MEDS ORDERED: fentaNYL* 50 MCG/ML 2 ML VIAL (100 MCG VIAL) IV PRN (17:29)
[2019-06-04] MEDS ORDERED: Acetaminophen IV 1GM/100ML * 1,000 MG/100 ML VIAL IVPB ONE (17:29)
[2019-06-04] MEDS ORDERED: Naloxone* 0.4 MG/ML 1 ML VIAL IV PRN (17:29)
[2019-06-04] MEDS ORDERED: HYDROmorphone INJ1* 1 MG/ML SYRINGE IV PRN (17:29)
[2019-06-04] MEDS ORDERED: DiMENhydriNATE IV* 50 MG/ML VIAL IV PUSH PRN (17:29)
--- NOTE | 2019-06-04 18:40 | OP ---
Operative Report - Blank - Operative Report Date of Operation: 06/04/19 Note: AUBREY GREER 1955 Date of Surgery: 06/04/19 Anabel Rankin MD [address] Reporter: Paty RAY did help throughout the procedure with preparation of the knee, wound retraction, manipulation of the knee, and wound closure. Anesthesiologist: Tonja Carlin MD Anesthesia Type: Spinal Preoperative Diagnosis: Right severe degenerative osteoarthritis of the knee Postoperative Diagnosis: As above Procedure Performed: Right Total Knee Arthroplasty Tourniquet time: 42 minutes Complications: None Specimen: Bone and cartilage from the right knee joint sent to pathology. Hardware Used: Cemented Burks and Nephew total knee hardware was used - For the femur a size 5 narrow right oxinium legion posterior stabilized femoral component, for the tibia a size 3 right ezekiel II tibial baseplate, for the insert a size 11mm 3-4 posterior stabilized articular polyethylene insert, and for the patella a size 29 3-peg all poly patella. Brief History/Indication: AUBREY GREER was known in clinic and had a history of severe right knee pain and swelling. She failed conservative treatment with anti -inflammatories, pain pills, intra-articular injections and physical therapy. She elected to undergo right total knee arthroplasty due to continued pain and decreased quality of life. Radiographs showed severe end stage osteoarthritis of the knee with bone on bone contact. Informed consent was obtained from the patient. She understood the risks of surgery included but were not limited to: bleeding, infection, damage to nearby structures, intraoperative fracture, nerve palsy, failure of the hardware, early loosening, knee stiffness or loss of motion, anesthesia complications, stroke, heart attack, blood clot and . She wished to proceed. Intra-Operative Findings: Intraoperatively the patient was noted to have severe loss of cartilage in all 3 compartments of the knee. Description of the Procedure: AUBREY GREER was identified in the preanesthesia unit. Her right knee was marked as the correct operative side. Informed consent was signed and placed in the chart. The patient was taken to the operating room and placed under anesthesia without complication. A montana catheter was placed. A tourniquet was placed on the right thigh. The right lower extremity was prepped and draped in the usual sterile fashion. Preoperative time-out was made to correctly identify the patient, side and site. Appropriate intraoperative antibiotics were given within one hour of incision. Tourniquet was inflated. A midline incision was made and carried sharply down to the extensor mechanism. A new 10 blade was used to make a standard medial parapatellar arthrotomy. The patella was subluxed laterally. Electrocautery was used to dissect soft tissue off the superomedial tibia to the midsagittal plane. The knee was flexed up. The anterior horn of the lateral meniscus and the ACL were sharply incised. A drill was used to enter the distal femur. The intramedullary distal femoral cutting guide was pinned on the distal femur. The oscillating saw was used to make the distal femoral cut. The external rotation guide was pinned on the distal femur and the distal femur was sized to a size 5. The size 5 multi-cutting jig was pinned on the distal femur. The oscillating saw was used to make the appropriate 4 chamfer cuts. Next the PCL was completely released. The extramedullary tibial cutting guide was pinned on the proximal tibia and the oscillating saw was used to make the proximal tibial cut perpendicular to the mechanical axis of the tibia. The bone was carefully removed. The knee was brought out into full extension. The spacer block was placed and had excellent fit with the knee in full extension. The medial and lateral ligaments were well balanced. The flexion and extension gaps were well balanced. The knee was flexed up. Lamina unhairing inspector was placed both medially and laterally. Any remaining meniscus was removed with electrocautery. Curved osteotome was used to remove any posterior osteophytes. The tibial tray and drop kip were placed and confirmed a satisfactory tibial cut. The size 5 right narrow femoral trial was impacted onto the distal femur. This trial had excellent fit and stability. The box for the posterior stabilized implant was prepared using a box cut osteotome and a reamer. Next a tibial tray trial and 9 mm insert trial was placed. The knee was taken through a range of motion and had full extension to 130 degrees of flexion. Patellofemoral tracking was satisfactory. The patella was inverted and sized to a size 29. Three peg holes were drilled through the size 29 drill guide. The trial patella was placed and the knee was taken through a range of motion. There was satisfactory patellofemoral tracking. All trials were removed. The tibia was subluxed anteriorly and sized to a size 3. The proximal tibial was prepared with a size 3 keel punch. All bony cut surfaces were irrigated with sterile saline and dried. Final implants were cemented into place starting with the tibia, followed by the femur, and last the patella. A 9 mm insert trial was placed and the knee was brought into full extension. Tourniquet was turned down and the knee was copiously irrigated with sterile saline. Electrocautery was used to obtain meticulous hemostasis. Once the cement had fully cured, the insert trial was removed. Any excess cement was removed from around the hardware and capsule. Final insert chosen was a 11 mm posterior stabilized Ezekiel II articular insert size 3-4. Stability of the insert was checked and noted to be stable. The extensor mechanism was closed using number 1 vicryls. The rest of the incision was closed in a layered fashion using 0 and 2-0 vicryls. The skin was closed using 3-0 nylon suture. Sterile xeroform, 4x4s and webril were used to cover the incision. George wrap and cold pack were used to cover the dressings. The patients anesthesia was reversed without difficulty. She was taken to the PACU in stable condition. Intended weight-bearing will be as tolerated.
--- NOTE | 2019-06-04 20:42 | CONS ---
CONSULTATION REPORT: DATE OF CONSULT: 06/04/19 PRIMARY CARE PROVIDER: Delores Benitez MD REQUESTING PHYSICIAN IN CONSULTATION: Anabel Rankin MD REASON FOR CONSULTATION: Co-medical management. HISTORY OF PRESENT ILLNESS: Ms. Griffith is a 63-year-old female with a past medical history of hypertension, hyperlipidemia, atrial fibrillation, diabetes mellitus, noninsulin dependent, who [place] [facility] [place] elective right total knee arthro[place]. The patient is seen postoperatively in the PACU. She states she is feeling well and she has no pain in the right knee. She is starting to regain sensation to the lower extremities and is able to move her extremities. She states that she is hungry, but has no other complaints today. PAST MEDICAL HISTORY: 1. Hypertension. 2. Hyperlipidemia. 3. Atrial fibrillation, on anticoagulation. 4. Diabetes mellitus, noninsulin dependent. 5. Asthma. 6. GERD. PAST SURGICAL HISTORY: Left ankle, tonsillectomy, hernia, urethral surgery, hysterectomy, right ankle ORIF. HOME MEDICATIONS: 1. Albuterol HFA inhaler 2 puffs inhalation q.4 hours p.r.n. shortness of breath. 2. Cholecalciferol 1000 units p.o. daily. 3. Glipizide 5 mg p.o. b.i.d. 4. Levocetirizine 5 mg p.o. at bedtime p.r.n. 5. Metformin 1000 mg p.o. b.i.d. 6. Metoprolol succinate 100 mg p.o. daily. 7. Multivitamins 1 tab p.o. daily. 8. Oxybutynin 15 mg p.o. daily. 9. Pioglitazone 15 mg p.o. at bedtime. 10. Ranitidine 150 mg p.o. b.i.d. 11. Rivaroxaban 20 mg p.o. at bedtime. 12. Simvastatin 40 mg p.o. at bedtime. 13. Valsartan/HCTZ 160/12.5 one tab p.o. daily. DRUG ALLERGIES: PENICILLIN, hives; LATEX, blisters; ADHESIVE, blisters. FAMILY HISTORY: One brother with diabetes mellitus type 1. Mother, maternal grandfather with diabetes type 2. Father, melanoma with metastasis to the brain leading to . No family history of CVA or heart disease. SOCIAL HISTORY: The patient denies current or former use of tobacco. She rarely drinks alcohol, less than weekly. 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 She is single. She has 3 children. She lives with her boyfriend. In the event that she is unable to make her own medical decision, she has appointed her boyfriend, Irineo Mccoy, or her son, Angel Griffith, to be her surrogate decision maker. REVIEW OF SYSTEMS: A 14-point review of systems has been performed and all the pertinent positives and negatives are in the HPI. All other systems are negative. PHYSICAL EXAM: General: Ms. Griffith is a well-developed, well-nourished, obese, middle-aged white woman, who is sitting up in bed. She is pleasant and cooperative. She appears to be in no acute distress. She appears comfortable. HEENT: PERRL. EOMI. Nonicteric sclerae. Hearing is grossly intact. Oral mucous membranes are mildly dry. There are no lesions. The pharynx is clear. The tongue is at midline. The palate elevates symmetrically. Cardiovascular: Regular rate and rhythm with S1, S2 present. No murmurs, rubs, clicks, or gallops. No JVD. No peripheral edema. Pulmonary: Symmetrical chest expansion without use of accessory muscles. Clear to auscultation bilaterally without rhonchi, wheezes, or rales. Abdomen: Obese. Bowel sounds in all quadrants. Soft, nontender to palpation. Neuro: The patient is awake. She is alert and oriented x3. Cranial nerves II through XII are grossly intact. Sensation intact to distal digits. Musculoskeletal: Right knee with clean, dry , and intact dressing in place; Cryo unit in place. Distal sensation intact. The patient is able to move digits distally. Capillary refill intact. ASSESSMENT AND PLAN: Ms. Griffith is a 63-year-old female with a past medical history of diabetes mellitus, noninsulin dependent; hypertension; atrial fibrillation, on anticoagulation; who [place] [facility] [place] elective right total knee arthroplasty. She will be admitted inpatient for: 1. Right total knee arthroplasty. Management per Ortho. Continue pain management, bowel regimen, and DVT prophylaxis. 2. Atrial fibrillation. Continue home metoprolol succinate with hold parameters. Restart rivaroxaban tomorrow per Ortho recommendations. 3. Diabetes mellitus type 2. Hold home medications glipizide, metformin, pioglitazone. Start lispro sliding scale with fingersticks a.c. 4. Hypertension. At this time, we will hold valsartan/HCTZ. Monitor for need for restart. 5. Hyperlipidemia. Continue statin. 6. Gastroesophageal reflux disease. Continue ranitidine. 7. Asthma. Albuterol p.r.n. . 8. DVT prophylaxis: Per Ortho. Restart home rivaroxaban tomorrow morning. 9. Code status: Full code. TIME SPENT: Approximately 30 minutes was spent on this consultation, greater than half that time was spent [id number] with the patient and her boyfriend obtaining history, performing physical, and reviewing the plan of care. FLOR TERRELL [id number]/CPS #: [id number] MTDD
[2019-06-04] MEDS ORDERED: metFORMIN* 1,000 MG TAB PO SCH (21:00)
[2019-06-04] MEDS ORDERED: glipiZIDE TAB* 5 MG PO SCH (21:00)
[2019-06-04] MEDS: Famotidine TAB* 20 MG PO SCH (22:05)
[2019-06-04] MEDS: Docusate CAP* 100 MG PO SCH (22:05)
[2019-06-04] MEDS: Atorvastatin* 40 MG TAB PO SCH (22:06)
[2019-06-04] MEDS: Magnesium Hydroxide LIQ* 30 ML UDC PO SCH (22:06)
[2019-06-04] MEDS: Acetaminophen TAB* 325 MG PO SCH (22:08)
[2019-06-05] MEDS: Clindamycin 600 MG/D5W BAG(*) 600 MG/50 ML BAG IV SCH ×3 (00:04→16:15)
[2019-06-05] MEDS: traMADol TAB* 50 MG PO PRN ×3 (00:07→17:41)
[2019-06-05 06:00] LABS: Hematocrit 32 % (35-47); Hemoglobin 10.9 g/dL (12.0-16.0); Platelet Count 186 10^3/uL (150-450)
[2019-06-05] MEDS: oxyCODONE/Acetamin 5/325 MG* TAB PO PRN ×2 (06:11→20:36)
[2019-06-05] MEDS: Acetaminophen TAB* 325 MG PO SCH ×3 (06:12→22:23)
[2019-06-05 06:20] LABS: BUN/Creatinine Ratio 28.2 (8-20); Calcium 8.7 mg/dL (8.6-10.3); EGFR African American 81.7 (>60); EGFR Non-African American 67.5 (>60); Potassium 4.1 mmol/L (3.5-5.0)
[2019-06-05] MEDS: Lactated Ringers 1000 ML Bag* 1,000 ML IV SCH (07:20)
[2019-06-05] MEDS: Ondansetron INJ* 2 MG/ML VIAL IV PRN ×2 (08:24→23:26)
[2019-06-05] MEDS ORDERED: Valsartan/HCTZ 160/12.5(NF) TAB PO SCH (09:00)
[2019-06-05] MEDS ORDERED: Apixaban* 2.5 MG TAB PO SCH (09:00)
[2019-06-05] MEDS ORDERED: Metoprolol Succinate XL TAB* 100 MG PO SCH (09:00)
[2019-06-05] MEDS ORDERED: Dextrose 50% VIAL 50 ml IV PUSH PRN (09:15)
[2019-06-05] MEDS: Magnesium Hydroxide LIQ* 30 ML UDC PO SCH ×2 (09:35→22:17)
[2019-06-05] MEDS: Vitamin THERAPEUTIC TAB PO SCH (09:38)
[2019-06-05] MEDS: Oxybutynin TAB* 5 MG PO SCH (09:38)
[2019-06-05] MEDS: Famotidine TAB* 20 MG PO SCH ×2 (09:38→22:19)
[2019-06-05] MEDS: Docusate CAP* 100 MG PO SCH ×2 (09:38→22:18)
--- NOTE | 2019-06-05 09:40 | PN ---
Subjective Date of Service: 06/05/19 Interval History: Ms. Griffith states she is feeling well today; she has R knee pain rated at 2/10. She has been up walking and states that it went well. She did experience some nausea and diaphoresis after pain medication this morning, but it has since passed. She had montana removed appx 1 h ago and has yet to void. She c/o dry throat, but has no other complaints today. Objective Active Medications: Acetaminophen (Tylenol Tab*) 975 mg PO Q8HR [facility] Last Admin: 06/05/19 06:12 Dose: Not Given Albuterol (Ventolin Hfa Inhaler*) 2 puff INH Q4H PRN PRN Reason: Asthma Atorvastatin Calcium (Lipitor*) 20 mg PO BEDTIME [facility] Last Admin: 06/04/19 22:06 Dose: 20 mg Bisacodyl (Dulcolax Supp*) 10 mg FL DAILY PRN PRN Reason: CONSTIPATION Cyclobenzaprine HCl (Flexeril Tab*) 10 mg PO Q6H PRN PRN Reason: SPASMS Dextrose (Dextrose 50% Vial 50 Ml*) 25 ml IV PUSH .FOR FS < 60 - SS PRN PRN Reason: FS < 60 Diphenhydramine HCl (Benadryl Iv*) 25 mg IV Q6H PRN PRN Reason: PRURITIS Diphenhydramine HCl (Benadryl Po*) 25 mg PO Q6H PRN PRN Reason: PRURITIS Docusate Sodium (Colace Cap*) 100 mg PO BID [facility] Last Admin: 06/04/19 22:05 Dose: 100 mg Famotidine (Pepcid Tab*) 20 mg PO BID [facility] Last Admin: 06/04/19 22:05 Dose: 20 mg Clindamycin HCl/Dextrose (Cleocin 600 Mg/50 Ml(*)) 600 mg in 50 mls @ 100 mls/ hr IV Q8H [facility] Stop: 06/05/19 16:29 Last Admin: 06/05/19 07:23 Dose: 100 mls/hr Lactated Ringer's (Lactated Ringers 1000 Ml Bag*) 1,000 mls @ 100 mls/hr IV PER RATE [facility] Last Admin: 06/05/19 07:20 Dose: 100 mls/hr Insulin Human Lispro (Humalog*) 0 units SUBCUT AC [facility]; Protocol Lactulose (Lactulose*) 30 ml PO BID PRN PRN Reason: CONSTIPATION Magnesium Hydroxide (Milk Of Magnesia Liq*) 30 ml PO BID [facility] Last Admin: 06/04/19 22:06 Dose: 30 ml Magnesium Hydroxide (Milk Of Magnesia Liq*) 30 ml PO Q6H PRN PRN Reason: CONSTIPATION Metoprolol Succinate (Toprol Xl Tab*) 100 mg PO QAM [facility] Morphine Sulfate (Morphine Inj (Syringe))*) 2 mg IV Q4H PRN PRN Reason: Pain - Unrelieved Multivitamins (Theragran Tab*) 1 tab PO DAILY [facility] Ondansetron HCl (Zofran Inj*) 4 mg IV Q6H PRN PRN Reason: NAUSEA Last Admin: 06/05/19 08:24 Dose: 4 mg Ondansetron HCl (Zofran Odt Tab*) 4 mg PO Q6H PRN PRN Reason: NAUSEA Oxybutynin Chloride (Ditropan Tab*) 15 mg PO QAM [facility] Oxycodone HCl (Roxycodone Tab*) 10 mg PO Q4H PRN PRN Reason: Pain - Breakthrough Oxycodone/Acetaminophen (Percocet 5/325 Tab*) 1 tab PO Q4H PRN PRN Reason: PAIN - MODERATE Last Admin: 06/04/19 22:10 Dose: 1 tab Oxycodone/Acetaminophen (Percocet 5/325 Tab*) 2 tab PO Q4H PRN PRN Reason: PAIN - SEVERE Last Admin: 06/05/19 06:11 Dose: 2 tab Polyethylene Glycol/Electrolytes (Miralax*) 17 gm PO DAILY PRN PRN Reason: Constipation Rivaroxaban (Xarelto(*)) 20 mg PO DAILY@1700 [facility] Tramadol HCl (Ultram*) 50 mg PO Q6H PRN PRN Reason: PAIN - MODERATE Last Admin: 06/05/19 00:07 Dose: 50 mg Trazodone HCl (Desyrel Tab*) 25 mg PO BEDTIME PRN PRN Reason: insomnia Vital Signs: Temp Pulse Resp BP Pulse Ox 97.7 F 61 18 120/67 92 06/05/19 07:52 06/05/19 07:52 06/05/19 08:00 06/05/19 07:52 06/05/19 08:00 Oxygen Devices in Use Now: None Appearance: Ms. Griffith is an obese middle aged white woman who is sitting in a recliner with b/l LE elevated. She appears comfortable and in no acute distress ; she is pleasant and cooperative. Eyes: No Scleral Icterus, PERRLA Ears/Nose/Mouth/Throat: NL Teeth, Lips, Gums, Clear Oropharnyx, Mucous Membranes Moist Neck: NL Appearance and Movements; NL JVP, Trachea Midline Respiratory: Symmetrical Chest Expansion and Respiratory Effort, Clear to Auscultation Cardiovascular: NL Sounds; No Murmurs; No JVD, RRR, No Edema Abdominal: NL Sounds; No Tenderness; No Distention, No Hepatosplenomegaly Extremities: No Edema, No Clubbing, Cyanosis, - - R knee with CDI dressing, cryo unit in place; sensation intact and equal at LE distally; pedal pulses palpable Neurological: Alert and Oriented x 3, - - CN II-XII grossly intact Result Diagrams: 06/05/19 05:21 06/05/19 05:21 Assess/Plan/Problems-Billing Assessment: 63yof PMHx AF on AC, DM, HTN presents for R TKA. - Patient Problems (1) Status post total right knee replacement Comment: -management per ortho -PT/OT -WBAT (2) Atrial fibrillation Comment: -currently RRR -continue metoprolol succinate -restart rivaroxaban this evening, as at home (3) Diabetes mellitus Comment: -a.m. BS 247 -FS and lispro ss AC and HS -continue to hold glipizide, metformin, pioglitizone (4) Hypertension Comment: -SBP 120-140's -continue to hold valsartan/HCTZ (5) Hyperlipidemia Comment: -continue atorvastatin (6) GERD (gastroesophageal reflux disease) Comment: -continue famotidine (7) Asthma Comment: -albuterol prn (8) DVT prophylaxis Comment: -restart home rivaroxaban at 1700, as at home (9) Full code status Status and Disposition: Inpatient. Discharge per ortho.
[2019-06-05] MEDS ORDERED: Insulin LISPRO* 1 UNITS UNIT SUBCUT SCH (11:30)
[2019-06-05] MEDS: Insulin LISPRO* 1 UNITS UNIT SUBCUT SCH ×3 (12:17→22:28)
--- NOTE | 2019-06-05 14:00 | PN ---
Progress Note - Progress Note Date of Service: 06/05/19 SOAP: Subjective: []Pt seen and examined at bedside. She feels well without CP, SOB, dizziness, nausea. R knee pain is well controlled Objective: []Gen: NAD appears well RLE: Right knee dressing CDI, thigh soft, DF/PF intact, DP2+, sensation intact to light touch distally Calves supple and nontender without erythema, edema or palpable cords Assessment: []POD 1 sp right total knee arthroplasty Plan: []WBAT PT/OT xarelto 20 mg qd ( home med) DC home tomorrow Vital Signs Temp 98 F 06/05/19 11:33 Pulse 62 06/05/19 11:33 Resp 16 06/05/19 11:33 BP 122/61 06/05/19 11:33 Pulse Ox 99 06/05/19 11:33 Intake & Output 06/04/19 06/05/19 06/05/19 18:59 06:59 18:59 Intake Total 2200 480 1107 Output Total 200 725 75 Balance 1999 - 1032 Weight 200 lb Intake: IV Fluids 2200 1052 Lr 2200 NS 1052 Medicated IV 55 Clindamycin 55 Oral 480 Output: Urine 75 [place] 725 Estimated Blood Loss 200 Laboratory Last Values Hgb 10.9 g/dL (12.0-16.0) L 06/05/19 05:21 Hct 32 % (35-47) L 06/05/19 05:21 Plt Count 186 10^3/uL (150-450) 06/05/19 05:21 MPV 9.0 fL (7.4-10.4) 06/05/19 05:21 Sodium 133 mmol/L (135-145) L 06/05/19 05:21 Potassium 4.1 mmol/L (3.5-5.0) 06/05/19 05:21 Chloride 102 mmol/L (101-111) 06/05/19 05:21 Carbon Dioxide 24 mmol/L (22-32) 06/05/19 05:21 Anion Gap 7 mmol/L (2-11) 06/05/19 05:21 BUN 24 mg/dL (6-24) 06/05/19 05:21 Creatinine 0.85 mg/dL (0.51-0.95) 06/05/19 05:21 Est GFR ( Amer) 81.7 (>60) 06/05/19 05:21 Est GFR (Non-Af Amer) 67.5 (>60) 06/05/19 05:21 BUN/Creatinine Ratio 28.2 (8-20) H 06/05/19 05:21 Glucose 247 mg/dL (70-100) H 06/05/19 05:21 POC Glucose (mg/dL) 151 mg/dL (70-100) H 06/05/19 11:37 Calcium 8.7 mg/dL (8.6-10.3) 06/05/19 05:21
[2019-06-05] MEDS ORDERED: Lactated Ringers 1000 ML Bag* 500 ML IV ONE (16:20)
[2019-06-05] MEDS: Rivaroxaban TAB(*) 20 MG TAB PO SCH (17:36)
[2019-06-05] MEDS: Atorvastatin* 40 MG TAB PO SCH (22:17)
[2019-06-05] MEDS: oxyCODONE TAB* 5 MG TAB PO PRN (22:19)
[2019-06-06] MEDS ORDERED: PROCHLORPERAZINE INJ 5 MG/ML 2 ML VIAL IV PRN (00:36)
[2019-06-06] MEDS: traMADol TAB* 50 MG PO PRN ×4 (00:56→22:53)
[2019-06-06] MEDS: Cyclobenzaprine TAB* 10 MG PO PRN ×3 (00:56→19:55)
[2019-06-06] MEDS: Lactated Ringers 1000 ML Bag* 1,000 ML IV SCH (01:03)
[2019-06-06 06:19] LABS: Hematocrit 30 % (35-47); Hemoglobin 10.2 g/dL (12.0-16.0); Mean Platelet Volume 9.2 fL (7.4-10.4); Platelet Count 158 10^3/uL (150-450)
[2019-06-06] MEDS: Oxybutynin TAB* 5 MG PO SCH (08:46)
[2019-06-06] MEDS: Acetaminophen TAB* 325 MG PO SCH ×3 (08:46→21:57)
[2019-06-06] MEDS: Famotidine TAB* 20 MG PO SCH ×2 (08:47→19:53)
[2019-06-06] MEDS: Vitamin THERAPEUTIC TAB PO SCH (08:47)
[2019-06-06] MEDS: Docusate CAP* 100 MG PO SCH ×2 (08:47→19:54)
[2019-06-06] MEDS: Insulin LISPRO* 1 UNITS UNIT SUBCUT SCH ×4 (08:48→21:57)
[2019-06-06] MEDS: Metoprolol Succinate XL TAB* 100 MG PO SCH ×2 (08:52→09:27)
[2019-06-06] MEDS: Magnesium Hydroxide LIQ* 30 ML UDC PO SCH ×2 (09:26→20:06)
--- NOTE | 2019-06-06 09:49 | PN ---
Subjective Date of Service: 06/06/19 Interval History: Ms. Griffith rates her pain at 4/10 currently. She states percocet is leading to nausea and vomiting and requests norco instead. She is urinating without difficulty and notes that she is urinating frequently. Patient has been up walking with walker. Denies headache; denies nausea, vomiting except when taking percocet. She has no other complaints today. Objective Active Medications: Acetaminophen (Tylenol Tab*) 975 mg PO Q8HR [facility] Last Admin: 06/06/19 08:46 Dose: 975 mg Albuterol (Ventolin Hfa Inhaler*) 2 puff INH Q4H PRN PRN Reason: Asthma Atorvastatin Calcium (Lipitor*) 20 mg PO BEDTIME [facility] Last Admin: 06/05/19 22:17 Dose: 20 mg Bisacodyl (Dulcolax Supp*) 10 mg [place] DAILY PRN PRN Reason: CONSTIPATION Cyclobenzaprine HCl (Flexeril Tab*) 10 mg PO Q6H PRN PRN Reason: SPASMS Last Admin: 06/06/19 08:47 Dose: 10 mg Dextrose (Dextrose 50% Vial 50 Ml*) 25 ml IV PUSH .FOR FS < 60 - SS PRN PRN Reason: FS < 60 Diphenhydramine HCl (Benadryl Iv*) 25 mg IV Q6H PRN PRN Reason: PRURITIS Diphenhydramine HCl (Benadryl Po*) 25 mg PO Q6H PRN PRN Reason: PRURITIS Docusate Sodium (Colace Cap*) 100 mg PO BID [facility] Last Admin: 06/06/19 08:47 Dose: 100 mg Famotidine (Pepcid Tab*) 20 mg PO BID [facility] Last Admin: 06/06/19 08:47 Dose: 20 mg Lactated Ringer's (Lactated Ringers 1000 Ml Bag*) 1,000 mls @ 100 mls/hr IV PER RATE [facility] Last Admin: 06/06/19 01:03 Dose: 100 mls/hr Insulin Human Lispro (Humalog*) 0 units SUBCUT ACHS [facility]; Protocol Last Admin: 06/06/19 08:48 Dose: 3 units Lactulose (Lactulose*) 30 ml PO BID PRN PRN Reason: CONSTIPATION Magnesium Hydroxide (Milk Of Magnesia Liq*) 30 ml PO BID [facility] Last Admin: 06/06/19 09:26 Dose: 30 ml Magnesium Hydroxide (Milk Of Magnesia Liq*) 30 ml PO Q6H PRN PRN Reason: CONSTIPATION Metoprolol Succinate ([facility]rol Xl Tab*) [facility] Last Admin: 06/06/19 09:27 Dose: 100 mg Morphine Sulfate (Morphine Inj (Syringe))*) 2 mg IV Q4H PRN PRN Reason: Pain - Unrelieved Multivitamins (Theragran Tab*) 1 tab PO DAILY [facility] Last Admin: 06/06/19 08:47 Dose: 1 tab Ondansetron HCl (Zofran Inj*) 4 mg IV Q6H PRN PRN Reason: NAUSEA Last Admin: 06/05/19 23:26 Dose: 4 mg Ondansetron HCl (Zofran Odt Tab*) 4 mg PO Q6H PRN PRN Reason: NAUSEA Oxybutynin Chloride (Ditropan Tab*) 15 mg PO [facility] Last Admin: 06/06/19 08:46 Dose: 15 mg Oxycodone HCl (Roxycodone Tab*) 10 mg PO Q4H PRN PRN Reason: Pain - Breakthrough Last Admin: 06/05/19 22:19 Dose: 10 mg Oxycodone/Acetaminophen (Percocet 5/325 Tab*) 1 tab PO Q4H PRN PRN Reason: PAIN - MODERATE Last Admin: 06/04/19 22:10 Dose: 1 tab Oxycodone/Acetaminophen (Percocet 5/325 Tab*) 2 tab PO Q4H PRN PRN Reason: PAIN - SEVERE Last Admin: 06/05/19 20:36 Dose: 2 tab Polyethylene Glycol/Electrolytes (Miralax*) 17 gm PO DAILY PRN PRN Reason: Constipation Prochlorperazine Edisylate (Compazine Inj*) 10 mg IV Q6H PRN PRN Reason: NAUSEA Last Admin: 06/06/19 00:58 Dose: 10 mg Rivaroxaban (Xarelto(*)) 20 mg PO DAILY@1700 [facility] Last Admin: 06/05/19 17:36 Dose: 20 mg Tramadol HCl (Ultram*) 50 mg PO Q6H PRN PRN Reason: PAIN - MODERATE Last Admin: 06/06/19 08:45 Dose: 50 mg Trazodone HCl (Desyrel Tab*) 25 mg PO BEDTIME PRN PRN Reason: insomnia Vital Signs: Temp Pulse Resp BP Pulse Ox 97.5 F 75 16 130/67 98 06/06/19 08:50 06/06/19 08:50 06/06/19 08:47 06/06/19 09:24 06/06/19 08:50 Oxygen Devices in Use Now: None Appearance: Ms. Griffith is a middle-aged obese white woman who is laying in bed. She appears relatively comfortable and in no acute distress. Eyes: No Scleral Icterus, PERRLA Ears/Nose/Mouth/Throat: NL Teeth, Lips, Gums, Clear Oropharnyx, Mucous Membranes Moist Neck: NL Appearance and Movements; NL JVP, Trachea Midline Respiratory: Symmetrical Chest Expansion and Respiratory Effort, Clear to Auscultation Cardiovascular: NL Sounds; No Murmurs; No JVD, RRR, No Edema Abdominal: NL Sounds; No Tenderness; No Distention, No Hepatosplenomegaly Extremities: No Edema, No Clubbing, Cyanosis, - - CDI dressing with cryo unit in place to R LE; sensation intact and equal distally; moves distal extremities Neurological: Alert and Oriented x 3 Result Diagrams: 06/06/19 06:05 06/06/19 06:05 Assess/Plan/Problems-Billing Assessment: 63yof PMHx AF on AC, DM, HTN presents for R TKA. - Patient Problems (1) Status post total right knee replacement Comment: -management per ortho -PT/OT -WBAT (2) Hyponatremia Comment: -Na trending down overnight -suspect this is related to excess water -d/c IVF and recheck Na this afternoon (3) Atrial fibrillation Comment: -currently RRR -continue metoprolol succinate -continue rivaroxaban (4) Diabetes mellitus Comment: -BS 140-180's -FS and lispro ss AC and HS -continue to hold glipizide, metformin, pioglitizone; may resume at discharge (5) Hypertension Comment: -mildly hypotensive overnight; improved with fluid boluses -continue to hold valsartan/HCTZ (6) Hyperlipidemia Comment: -continue atorvastatin (7) GERD (gastroesophageal reflux disease) Comment: -continue famotidine (8) Asthma Comment: -albuterol prn (9) DVT prophylaxis Comment: -continue home rivaroxaban (10) Full code status Status and Disposition: Inpatient. Discharge per ortho.
[2019-06-06] MEDS: oxyCODONE TAB* 5 MG TAB PO PRN (12:32)
[2019-06-06] MEDS: Rivaroxaban TAB(*) 20 MG TAB PO SCH (16:03)
[2019-06-06 16:55] LABS: Urine Appearance Clear; Urine Bilirubin Negative (Negative); Urine Blood 1+ (Negative); Urine Color Yellow; Urine Glucose 1+(50 mg/dL) (Negative); Urine Ketones Negative (Negative); Urine Nitrite Negative (Negative); Urine Protein Negative (Negative); Urine Specific Gravity 1.004 (1.010-1.030); Urine Urobilinogen Negative (Negative)
[2019-06-06 16:57] LABS: Urine Bacteria Absent (Absent); Urine Red Blood Cell Absent (Absent); Urine White Blood Cell Trace(0-5/hpf) (Absent)
[2019-06-06] MEDS ORDERED: Bisacodyl SUPP* 10 MG SUPP PR PRN (17:04)
[2019-06-06] MEDS: Atorvastatin* 40 MG TAB PO SCH (19:54)
--- NOTE | 2019-06-06 23:28 | PN ---
Progress Note - Progress Note Date of Service: 06/06/19 SOAP: Subjective: Pt seen and examined at bedside. No complaint of pain. States did not feel right and was unable to void last night. Feeling much better today and was able to void. Denies CP, SOB, F/C. Vital Signs: Temp Pulse Resp BP Pulse Ox 97.4 F 69 18 108/52 99 06/06/19 22:56 06/06/19 22:56 06/06/19 22:56 06/06/19 22:56 06/06/19 22:56 Laboratory Last Values Hgb 10.2 g/dL (12.0-16.0) L 06/06/19 06:05 Hct 30 % (35-47) L 06/06/19 06:05 Plt Count 158 10^3/uL (150-450) 06/06/19 06:05 MPV 9.2 fL (7.4-10.4) 06/06/19 06:05 Sodium 131 mmol/L (135-145) L 06/06/19 15:53 Potassium 4.1 mmol/L (3.5-5.0) 06/05/19 05:21 Chloride 102 mmol/L (101-111) 06/05/19 05:21 Carbon Dioxide 24 mmol/L (22-32) 06/05/19 05:21 Anion Gap 7 mmol/L (2-11) 06/05/19 05:21 BUN 24 mg/dL (6-24) 06/05/19 05:21 Creatinine 0.85 mg/dL (0.51-0.95) 06/05/19 05:21 Est GFR ( Amer) 81.7 (>60) 06/05/19 05:21 Est GFR (Non-Af Amer) 67.5 (>60) 06/05/19 05:21 BUN/Creatinine Ratio 28.2 (8-20) H 06/05/19 05:21 Glucose 247 mg/dL (70-100) H 06/05/19 05:21 POC Glucose (mg/dL) 148 mg/dL (70-100) H 06/06/19 16:49 Calcium 8.7 mg/dL (8.6-10.3) 06/05/19 05:21 Urine Color Yellow 06/06/19 15:19 Urine Appearance Clear 06/06/19 15:19 Urine pH 7.0 (5-9) 06/06/19 15:19 Ur Specific [place] 1.004 (1.010-1.030) L 06/06/19 15: Urine Protein Negative (Negative) 06/06/19 15:19 Urine Ketones Negative (Negative) 06/06/19 15:19 Urine Blood 1+ (Negative) A 06/06/19 15: Urine Nitrate Negative (Negative) 06/06/19 15: Urine Bilirubin Negative (Negative) 06/06/19 15:19 Urine Urobilinogen Negative (Negative) 06/06/19 15:19 Ur Leukocyte Esterase Negative (Negative) 06/06/19 15:19 Urine WBC (Auto) Trace(0-5/hpf) (Absent) 06/06/19 15: Urine RBC (Auto) Absent (Absent) 06/06/19 15: Urine Bacteria Absent (Absent) 06/06/19 15: Urine Glucose 1+(50 mg/dl) (Negative) A 06/06/19 15:19 Objective: A&O x3, NAD Dressing C/D/I, Calves soft and nontender, No edema, NVI distally Assessment: 63 yo female s/p Right TKA POD #2 Plan: OOB PT/OT WBAT Pain control DVT prophylaxis - Xeralto 20mg qd (home med) Hyponatremia managed by hospitalist Likely D/C home 06/07
[2019-06-07] MEDS: Cyclobenzaprine TAB* 10 MG PO PRN (03:53)
[2019-06-07] MEDS: Acetaminophen TAB* 325 MG PO SCH (05:55)
[2019-06-07 05:58] LABS: Hematocrit 32 % (35-47); Hemoglobin 10.7 g/dL (12.0-16.0); Mean Platelet Volume 9.5 fL (7.4-10.4); Platelet Count 157 10^3/uL (150-450)
[2019-06-07 06:14] LABS: Calcium 8.9 mg/dL (8.6-10.3); EGFR African American 73.7 (>60); EGFR Non-African American 60.9 (>60); Potassium 4.4 mmol/L (3.5-5.0)
[2019-06-07] MEDS: Magnesium Hydroxide LIQ* 30 ML UDC PO SCH (07:55)
[2019-06-07] MEDS: Docusate CAP* 100 MG PO SCH (07:56)
--- NOTE | 2019-06-07 07:58 | PN ---
Progress Note - Progress Note Date of Service: 06/07/19 SOAP: Subjective: resting comfortably in bed, ambulating well, pain controlled with Tramadol Objective: Vital Signs Temp Pulse Resp BP Pulse Ox 97.9 F 68 18 144/65 100 06/07/19 03:43 06/07/19 03:43 06/07/19 03:53 06/07/19 03:43 06/07/19 03:43 Laboratory Last Values Hgb 10.7 g/dL (12.0-16.0) L 06/07/19 05:19 Hct 32 % (35-47) L 06/07/19 05:19 Plt Count 157 10^3/uL (150-450) 06/07/19 05:19 MPV 9.5 fL (7.4-10.4) 06/07/19 05:19 Sodium 131 mmol/L (135-145) L 06/07/19 05:19 Potassium 4.4 mmol/L (3.5-5.0) 06/07/19 05:19 Chloride 98 mmol/L (101-111) L 06/07/19 05:19 Carbon Dioxide 28 mmol/L (22-32) 06/07/19 05:19 Anion Gap 5 mmol/L (2-11) 06/07/19 05:19 BUN 13 mg/dL (6-24) 06/07/19 05:19 Creatinine 0.93 mg/dL (0.51-0.95) 06/07/19 05:19 Est GFR ( Amer) 73.7 (>60) 06/07/19 05:19 Est GFR (Non-Af Amer) 60.9 (>60) 06/07/19 05:19 BUN/Creatinine Ratio 14.0 (8-20) 06/07/19 05:19 Glucose 182 mg/dL (70-100) H 06/07/19 05:19 POC Glucose (mg/dL) 184 mg/dL (70-100) H 06/06/19 21:41 Calcium 8.9 mg/dL (8.6-10.3) 06/07/19 05:19 Urine Color Yellow 06/06/19 15:19 Urine Appearance Clear 06/06/19 15:19 Urine pH 7.0 (5-9) 06/06/19 15:19 Ur Specific [place] 1.004 (1.010-1.030) L 06/06/19 15:19 Urine Protein Negative (Negative) 06/06/19 15:19 Urine Ketones Negative (Negative) 06/06/19 15: Urine Blood 1+ (Negative) A 06/06/19 15:19 Urine Nitrate Negative (Negative) 06/06/19 15:19 Urine Bilirubin Negative (Negative) 06/06/19 15: Urine Urobilinogen Negative (Negative) 06/06/19 15: Ur Leukocyte Esterase Negative (Negative) 06/06/19 15:19 Urine WBC (Auto) Trace(0-5/hpf) (Absent) 06/06/19 15: Urine RBC (Auto) Absent (Absent) 06/06/19 15: Urine Bacteria Absent (Absent) 06/06/19 15:19 Urine Glucose 1+(50 mg/dl) (Negative) A 06/06/19 15:19 incision: c/d; dressing changed PE: NVI Assessment: s/p right TKA Plan: 1) PT/OT- WBAT 2) Xarelto 20mg QD for DVT prophylaxis 3) home today, F/U with Dr. Rankin in 2 weeks
[2019-06-07 07:59] VITALS: BP 127/58
[2019-06-07] MEDS: Insulin LISPRO* 1 UNITS UNIT SUBCUT SCH (08:20)
[2019-06-07] MEDS: Famotidine TAB* 20 MG PO SCH (08:21)
[2019-06-07] MEDS: Vitamin THERAPEUTIC TAB PO SCH (08:21)
[2019-06-07] MEDS: Oxybutynin TAB* 5 MG PO SCH (08:21)
[2019-06-07] MEDS: Metoprolol Succinate XL TAB* 100 MG PO SCH (08:21)
--- NOTE | 2019-06-07 09:03 | DS ---
DISCHARGE SUMMARY: DATE OF ADMISSION: 06/04/19 DATE OF DISCHARGE: 06/07/19 SURGEON: Anabel Rankin MD * (DICTATED BY FLOR MONTES) PRINCIPAL DIAGNOSIS: Severe end-stage osteoarthritis of the right knee. DISCHARGE DIAGNOSIS: Severe end-stage osteoarthritis of the right knee. DISCHARGE DISPOSITION: Discharged home in stable condition. HISTORY OF PRESENT ILLNESS: Ms. Griffith is a 63-year-old female with end-stage osteoarthritis of the right knee. She has failed conservative treatment and elected to proceed with a right total knee arthroplasty. HOSPITAL COURSE: Ms. Griffith was admitted electively to the hospital on 06/04/19 and underwent a right total knee arthroplasty. Postoperatively, her preop Xarelto was restarted for DVT prophylaxis. On postoperative day #1, her H and H was 10 and 32; on postop day #2, 10 and 30; and on postop day #3, 10 and 32. Her sodium level was 131. She was doing well with physical therapy and taking tramadol every 4 hours for pain. She was afebrile and her vital signs were stable. PHYSICAL EXAMINATION UPON DISCHARGE: Her wound was clean and dry. There was no signs of infection. She was ambulating well. Her calf is soft and nontender. She was able to dorsiflex and plantarflex and had 2+ dorsalis pedis pulse. DISCHARGE MEDICATIONS: 1. Tramadol 50 mg 1 tab every 4 to 6 hours as needed for pain. 2. Colace 100 mg tabs 2 to 3 daily as needed for constipation. 3. Flexeril 10 mg every 8 hours as needed for muscle spasms. 4. Xarelto 20 mg a day. 5. Ventolin inhaler 2 puffs as needed. 6. Lipitor 20 mg q.h.s. 7. Pepcid 20 mg twice a day. 8. Insulin. 9. Metoprolol 100 mg daily. 10. Multivitamin. 11. Oxybutynin 15 mg a day. DISCHARGE INSTRUCTIONS: She was discharged home. Home physical therapy and VNS services were arranged. Home physical therapy will begin next Sunday. She was given tramadol for pain, Flexeril for spasms, Colace for constipation. She will continue her preoperative Xarelto 20 mg a day for DVT prophylaxis. She is weightbearing as tolerated. I changed her dressing prior to discharge. She is going to keep that dressing on until Sunday and she can remove it and take a shower, letting soap and water run over the incision and pat the area dry. She cannot submerge it in water. No pools, baths or hot tubs. She will follow up with Dr. Rankin in 2 weeks. We have asked her to call our office with any questions or concerns. FLOR MONTES [id number]/[facility] #: [id number] ADRI[place]
[2019-06-07] MEDS: traMADol TAB* 50 MG PO PRN (09:25)
== END 2019-06-07 11:00 | disposition home health service (06) | DRG 302 ==
LOC: AA 11:30 → SSU 20:31
PROVIDERS: ADMIT Orthopaedic Surgery Adult Reconstructive Orthopaedic Surgery; ATTEND Orthopaedic Surgery Adult Reconstructive Orthopaedic Surgery
PROC: 0SRC069 Replacement of Right Knee Joint with Oxidized Zirconium on Polyethylene Synthetic Substitute, Cemented, Open Approach (ICD-10-PCS; principal; 2019-06-04 14:00)
DX: M17.11 Unilateral primary osteoarthritis, right knee (principal); E87.1 Hypo-osmolality and hyponatremia; I10 Essential (primary) hypertension; E11.9 Type 2 diabetes mellitus without complications; K21.9 Gastro-esophageal reflux disease without esophagitis; E78.00 Pure hypercholesterolemia, unspecified; E78.2 Mixed hyperlipidemia; J45.909 Unspecified asthma, uncomplicated; I48.0 Paroxysmal atrial fibrillation; M25.761 Osteophyte, right knee; F41.9 Anxiety disorder, unspecified; I95.9 Hypotension, unspecified; Z79.01 Long term (current) use of anticoagulants; Z79.4 Long term (current) use of insulin; Z88.0 Allergy status to penicillin; Z88.8 Allergy status to other drugs, medicaments and biological substances; Z91.040 Latex allergy status
CPT/HCPCS: 36415; 80048; 81003; 81015; 84300; 85014; 85018; 85049; 87086; 88305; 88311; A9270-GY; C1776; J0780; J1100; J1885; J2250; J2405; J2704; J2795; J3010; J3490